=== PATIENT | male | born 1950 | race Caucasian/White ===

== ENCOUNTER 2019-04-05 16:10 | Emergency (ER) | payer MEDICARE ==
--- NOTE | 2019-04-05 16:42 | ED ---
Dizziness HPI - General Chief Complaint: Syncope Stated Complaint: FALL, HEAD INJURY Time Seen by Provider: 04/05/19 16:15 Source: patient, EMS, RN notes reviewed, old records reviewed Mode of arrival: EMS Limitations: no limitations - History of Present Illness Initial Comments: This is a 68-year-old male the ER for evaluation presented for evaluation of multiple falls unsure of surrounding circumstances. Patient's poor strain at his normally event and is brought in by EMS, per bystanders patient was little off and is walking and balancing did fall 3 [facility]. Patient himself denies headache chest pain shortness breath or abdominal pain. Patient does have mild nose laceration. Abrasion to and laceration to right says has well. Patient is out of her any significant events. He has no current headache chest pain shortness breath or abdominal pain. Patient's history is severely lacking and history is obtained from EMS MD Complaint: dizziness, lightheadedness, other (Patient is not a number falls with apparently fell 3 times) -: minutes(s) Timing: sudden onset Description: sense of movement, "room spinning" History of Same: No History of Trauma: Yes (After falling today) Severity: mild Improves With: nothing Worsens With: nothing Associated Symptoms: denies other symptoms - Related Data Home Medications Medication Instructions Recorded Confirmed Aspirin 81 mg PO DAILY 02/28/14 04/05/19 Atorvastatin [Lipitor] 80 mg PO HS 02/28/14 04/05/19 Bisoprolol-Hctz 10-6.25 mg [Ziac 1 tab PO DAILY 02/28/14 04/05/19 10-6.25 MG] Ergocalciferol [Vitamin D2] 50,000 unit PO Q30D 04/05/19 04/05/19 Isosorbide Mononitrate ER [Imdur] 30 mg PO DAILY 04/05/19 04/05/19 Allergies Allergy/AdvReac Type Severity Reaction Status Date / Time No Known Allergies Allergy Verified 04/05/19 16:38 Review of Systems ROS Statement: Those systems with pertinent positive or pertinent negative responses have been documented in the HPI. ROS Other: All systems not noted in ROS Statement are negative. Past Medical History Past Medical History: Hyperlipidemia, Hypertension Additional Past Medical History / Comment(s): FATIGUE, SOB History of Any Multi-Drug Resistant Organisms: None Reported Past Surgical History: No Surgical Hx Reported Past Anesthesia/Blood Transfusion Reactions: No Reported Reaction Past Psychological History: No Psychological Hx Reported Smoking Status: Never smoker Past Alcohol Use History: None Reported Past Drug Use History: None Reported General Exam Limitations: no limitations General appearance: alert, in no apparent distress Head exam: Present: normocephalic, normal inspection. Absent: atraumatic (Nasal bridge laceration likely from glasses, right-sided parietal laceration) Eye exam: Present: normal appearance, PERRL, EOMI. Absent: scleral icterus, conjunctival injection, periorbital swelling ENT exam: Present: normal exam, mucous membranes moist Neck exam: Present: normal inspection. Absent: tenderness, meningismus, lymphadenopathy Respiratory exam: Present: normal lung sounds bilaterally. Absent: respiratory distress, wheezes, rales, rhonchi, stridor Cardiovascular Exam: Present: regular rate, normal rhythm, normal heart sounds. Absent: systolic murmur, diastolic murmur, rubs, gallop, clicks GI/Abdominal exam: Present: soft, normal bowel sounds. Absent: distended, tenderness, guarding, rebound, rigid Extremities exam: Present: normal inspection, full ROM, normal capillary refill. Absent: tenderness, pedal edema, joint swelling, calf tenderness Back exam: Present: normal inspection Neurological exam: Present: alert, oriented X3, CN II-XII intact Psychiatric exam: Present: normal affect, normal mood Skin exam: Present: warm, dry, intact, normal color. Absent: rash Course Vital Signs 04/05/19 04/05/19 16:15 17:11 Temperature 97.6 F Pulse Rate 58 L 57 L Respiratory 16 18 Rate Blood Pressure 148/75 159/85 O2 Sat by Pulse 97 97 Oximetry - Reevaluation(s) Reevaluation #1: 04/05/19 19:20 Medical records reviewed Reevaluation #2: 04/05/19 19:20 refusing computed tomography scan of his chest rel PE even though elevated d-dimer and nonspecific syncopal event. He denies chest pain or shortness of breath. But secondary patient refusing further imaging elevated sign out AGAINST MEDICAL ADVICE as we do not know results of CT EKG Findings - EKG Comments: EKG Findings:: EKG shows sinus bradycardia rate of 55, MS 152, QRS 02, QTc 461 Procedures - Laceration Laceration #1 Consent Obtained: verbal consent Indication: laceration Site: scalp, other (nose) Size (cm): 1 Description: linear Type of Sutures: other (dermabond on nose) Patient Tolerated Procedure: well Laceration #2 Consent Obtained: verbal consent Indication: laceration Site: scalp Size (cm): 6 Description: linear Type of Sutures: other (dhruv on scalp) Patient Tolerated Procedure: well Medical Decision Making - Medical Decision Making 68 male the ER for evaluation sign out AGAINST MEDICAL ADVICE awake able to keep making O medical decisions. CT brain C-spine patient was is negative. Patient can be discharged home - Lab Data Result diagrams: 04/05/19 16:47 04/05/19 16:47 Lab Results 04/05/19 04/05/19 04/05/19 Range/Units 16:47 16:47 16:47 WBC 6.8 (3.8-10.6) k/uL RBC 4.87 (4.30-5.90) m/uL Hgb 15.1 (13.0-17.5) gm/dL Hct 43.9 (39.0-53.0) % MCV 90.1 (80.0-100.0) fL MCH 30.9 (25.0-35.0) pg MCHC 34.3 (31.0-37.0) g/dL RDW 13.0 (11.5-15.5) % Plt Count 273 (150-450) k/uL Neutrophils % 66 % Lymphocytes % 26 % Monocytes % 4 % Eosinophils % 2 % Basophils % 1 % Neutrophils # 4.5 (1.3-7.7) k/uL Lymphocytes # 1.7 (1.0-4.8) k/uL Monocytes # 0.3 (0-1.0) k/uL Eosinophils # 0.2 (0-0.7) k/uL Basophils # 0.1 (0-0.2) k/uL PT 10.5 (9.0-12.0) sec INR 1.0 (<1.2) APTT 21.7 L (22.0-30.0) sec D-Dimer 0.63 H (<0.60) mg/L FEU Sodium 141 (137-145) mmol/L Potassium 4.5 (3.5-5.1) mmol/L Chloride 105 (98-107) mmol/L Carbon Dioxide 26 (22-30) mmol/L Anion Gap 10 mmol/L BUN 16 (9-20) mg/dL Creatinine 1.38 H (0.66-1.25) mg/dL Est GFR (CKD-EPI)AfAm 61 (>60 ml/min/1.73 sqM) Est GFR (CKD-EPI)NonAf 53 (>60 ml/min/1.73 sqM) Glucose 185 H (74-99) mg/dL Calcium 9.4 (8.4-10.2) mg/dL Phosphorus 4.4 (2.5-4.5) mg/dL Magnesium 2.2 (1.6-2.3) mg/dL Total Bilirubin 1.3 (0.2-1.3) mg/dL AST 30 (17-59) U/L ALT 32 (21-72) U/L Alkaline Phosphatase 69 (38-126) U/L Troponin I (0.000-0.034) ng/mL NT-Pro-B Natriuret Pep pg/mL Total Protein 7.7 (6.3-8.2) g/dL Albumin 4.5 (3.5-5.0) g/dL 04/05/19 04/05/19 Range/Units 16:47 16:47 WBC (3.8-10.6) k/uL RBC (4.30-5.90) m/uL Hgb (13.0-17.5) gm/dL Hct (39.0-53.0) % MCV (80.0-100.0) fL MCH (25.0-35.0) pg MCHC (31.0-37.0) g/dL RDW (11.5-15.5) % Plt Count (150-450) k/uL Neutrophils % % Lymphocytes % % Monocytes % % Eosinophils % % Basophils % % Neutrophils # (1.3-7.7) k/uL Lymphocytes # (1.0-4.8) k/uL Monocytes # (0-1.0) k/uL Eosinophils # (0-0.7) k/uL Basophils # (0-0.2) k/uL PT (9.0-12.0) sec INR (<1.2) APTT (22.0-30.0) sec D-Dimer (<0.60) mg/L FEU Sodium (137-145) mmol/L Potassium (3.5-5.1) mmol/L Chloride (98-107) mmol/L Carbon Dioxide (22-30) mmol/L Anion Gap mmol/L BUN (9-20) mg/dL Creatinine (0.66-1.25) mg/dL Est GFR (CKD-EPI)AfAm (>60 ml/min/1.73 sqM) Est GFR (CKD-EPI)NonAf (>60 ml/min/1.73 sqM) Glucose (74-99) mg/dL Calcium (8.4-10.2) mg/dL Phosphorus (2.5-4.5) mg/dL Magnesium (1.6-2.3) mg/dL Total Bilirubin (0.2-1.3) mg/dL AST (17-59) U/L ALT (21-72) U/L Alkaline Phosphatase (38-126) U/L Troponin I <0.012 (0.000-0.034) ng/mL NT-Pro-B Natriuret Pep 504 pg/mL Total Protein (6.3-8.2) g/dL Albumin (3.5-5.0) g/dL - Radiology Data Radiology results: report reviewed (CT brain C-spine patient was negative for acute disease), image reviewed Disposition Clinical Impression: Vasovagal syncope, Nasal laceration, Laceration of head Narrative: RIght Sided Scalp Parietal Laceration 5cm Disposition: HOME SELF-CARE Condition: Good Instructions (If sedation given, give patient instructions): Laceration (ED), Syncope (ED) Is patient prescribed a controlled substance at d/c from ED?: No Referrals: Royal Castro MD [Primary Care Provider] - 1-2 days
[2019-04-05] MEDS ORDERED: SODIUM CHLORIDE 0.9% 500 ML 500 ML IV STA (17:01)
[2019-04-05] MEDS ORDERED: SODIUM CHLORIDE 0.9% 1,000 ML IV STA (17:01)
[2019-04-05 17:30] LABS: Basophils # (A) 0.1 k/uL (0-0.2); Basophils % (A) 1 %; Eosinophils # (A) 0.2 k/uL (0-0.7); Eosinophils % (A) 2 %; HCT 43.9 % (39.0-53.0); HGB 15.1 gm/dL (13.0-17.5); Lymphocytes # (A) 1.7 k/uL (1.0-4.8); Lymphocytes % (A) 26 %; MCH 30.9 pg (25.0-35.0); MCHC 34.3 g/dL (31.0-37.0); MCV 90.1 fL (80.0-100.0); Monocytes # (A) 0.3 k/uL (0-1.0); Monocytes % (A) 4 %; Neutrophils # (A) 4.5 k/uL (1.3-7.7); Neutrophils % (A) 66 %; Platelet Count 273 k/uL (150-450); RBC 4.87 m/uL (4.30-5.90); WBC 6.8 k/uL (3.8-10.6)
[2019-04-05 17:46] LABS: Albumin 4.5 g/dL (3.5-5.0); Calcium 9.4 mg/dL (8.4-10.2); Magnesium 2.2 mg/dL (1.6-2.3); Phosphorus 4.4 mg/dL (2.5-4.5); Potassium 4.5 mmol/L (3.5-5.1); Total Bilirubin 1.3 mg/dL (0.2-1.3); Total Protein 7.7 g/dL (6.3-8.2)
[2019-04-05 17:51] LABS: Prothrombin Time 10.5 sec (9.0-12.0)
[2019-04-05 17:57] LABS: D-Dimer 0.63 mg/L FEU (<0.60)
[2019-04-05 17:58] LABS: Partial Thromboplastin Time 21.7 sec (22.0-30.0)
--- NOTE | 2019-04-05 18:44 | CT ---
EXAMINATION TYPE: CT brain maximo wo con DATE OF EXAM: 04/05/2019 COMPARISON: 05/08/2010 HISTORY: Syncopal episode. Multiple falls with lacerations to right side of head and bridge of nose. CT DLP: 1256.4 (total with facial) mGycm Automated exposure control for dose reduction was used. TECHNIQUE: CT scan of the head and cervical spine are performed without contrast. FINDINGS: There is a 2 cm focal soft tissue tissue swelling high over the right frontal bone. There i s no skull fracture. No intracranial hemorrhage. There is no mass or mass effect, or midline shift. The ventricles and sulci are within normal limits in size. The globes are intact and the visualized sinuses are clear. Cervical spine is visualized in its entirety from C1 through upper thoracic levels and demonstrates s atisfactory alignment without evidence of acute fracture or dislocation. Prevertebral soft tissue ap pears within normal limits. Multilevel mild cervical spondylosis changes noted. The C1-C2 articulati on is unremarkable. IMPRESSION: 1. There is no acute fracture or dislocation evident in the cervical spine. 2. No acute intracranial hemorrhage, mass effect, or midline shift is seen. 3. 2 cm focal soft tissue swelling over the right frontal bone noted.
--- NOTE | 2019-04-05 18:47 | CT ---
EXAMINATION TYPE: CT facial bones wo con DATE OF EXAM: 04/05/2019 COMPARISON: None HISTORY: Syncopal episode. Multiple falls with lacerations to right side of head and bridge of nose. CT DLP: 1256.4 (total with brain) mGycm Automated exposure control for dose reduction was used. TECHNIQUE: CT scan of the sinuses is performed without contrast, axial images are obtained, coronal r eformatted images are also reviewed. FINDINGS: The paranasal sinuses including the frontal, ethmoid, sphenoid, and maxillary sinuses bila terally are well-aerated without abnormal opacification. The ostiomeatal complex is patent bilateral ly on the coronal images. Visualized portion of mastoid air cells show no abnormal opacification. The globes are intact bilate rally. Other: No incidental findings. IMPRESSION: Negative for fracture or malalignment.
[2019-04-05 19:24] VITALS: BP 148/73; PULSE 50; RESP 16
[2019-04-05 20:04] VITALS: TEMP 98.9
== END 2019-04-05 20:02 | disposition home or self-care (01) ==
LOC: EC 16:10
DX: S01.21XA Laceration without foreign body of nose, initial encounter (principal); S01.01XA Laceration without foreign body of scalp, initial encounter; R55 Syncope and collapse; R79.89 Other specified abnormal findings of blood chemistry; R29.6 Repeated falls; E78.5 Hyperlipidemia, unspecified; I10 Essential (primary) hypertension; Z79.82 Long term (current) use of aspirin; Z79.899 Other long term (current) drug therapy; W01.0XXA Fall on same level from slipping, tripping and stumbling without subsequent striking against object, initial encounter; Y93.01 Activity, walking, marching and hiking
CPT/HCPCS: 12002; 12011; 36415; 70450; 70486; 72125; 80053; 83735; 83880; 84100; 84484; 85025; 85379; 85610; 85730; 93005; 96360; 96361; 99285

== ENCOUNTER → 2022-10-28 | Outpatient (CLI) | payer MEDICARE ==
--- NOTE | 2022-10-28 18:19 | US ---
EXAMINATION TYPE: US venous doppler duplex LE LT DATE OF EXAM: 10/28/2022 5:28 PM COMPARISON: NONE CLINICAL INDICATION: Male, 72 years old with history of R22.41 SWELLING OF RIGHT LOWER LIMB; Swelling of left calf x 2 days. Pt states no trauma, but walked 6 miles that day. SIDE PERFORMED: Left TECHNIQUE: The lower extremity deep venous system is examined utilizing real time linear array sonog nikki with graded compression, doppler sonography and color-flow sonography. VESSELS IMAGED: Common Femoral Vein Deep Femoral Vein Greater Saphenous Vein * Femoral Vein Popliteal Vein Small Saphenous Vein * Proximal Calf Veins (* superficial vessels) Left Leg: Negative for DVT IMPRESSION: 1. Left lower extremity ultrasound negative for deep venous thrombosis.
== END | disposition home or self-care (01) ==
LOC: RADUSWWP 17:02
PROVIDERS: ATTEND Family Medicine
DX: R22.41 Localized swelling, mass and lump, right lower limb (principal)

== ENCOUNTER 2023-09-30 16:00 | Observation (INO) | payer MEDICARE ==
[2023-09-30 17:09] LABS: ALT 30 U/L (4-49); AST 32 U/L (17-59); African American GFR (CKD) 75 (>60 ml/min/1.73 sqM); Albumin 4.1 g/dL (3.5-5.0); Alkaline Phosphatase 53 U/L (38-126); Anion Gap 8 mmol/L; Blood Urea Nitrogen 26 mg/dL (9-20); Calcium 9.3 mg/dL (8.4-10.2); Carbon Dioxide 26 mmol/L (22-30); Chloride 104 mmol/L (98-107); Glucose 124 mg/dL (74-99); Non-African American GFR(CKD) 65 (>60 ml/min/1.73 sqM); Potassium 4.3 mmol/L (3.5-5.1); Sodium 138 mmol/L (137-145); Total Bilirubin 1.5 mg/dL (0.2-1.3); Total Protein 6.9 g/dL (6.3-8.2)
[2023-09-30 17:32] LABS: Basophils # (A) 0.1 k/uL (0-0.2); Basophils % (A) 1 %; Eosinophils # (A) 0.2 k/uL (0-0.7); Eosinophils % (A) 2 %; HCT 39.7 % (39.0-53.0); HGB 13.3 gm/dL (13.0-17.5); Lymphocytes # (A) 2.1 k/uL (1.0-4.8); Lymphocytes % (A) 23 %; MCH 30.1 pg (25.0-35.0); MCHC 33.5 g/dL (31.0-37.0); MCV 90.1 fL (80.0-100.0); Mean Platelet Volume 7.8; Monocytes # (A) 0.5 k/uL (0-1.0); Monocytes % (A) 6 %; Neutrophils # (A) 5.9 k/uL (1.3-7.7); Neutrophils % (A) 66 %; Platelet Count 257 k/uL (150-450); RDW 12.9 % (11.5-15.5); WBC 8.9 k/uL (3.8-10.6)
--- NOTE | 2023-09-30 17:40 | CT ---
EXAMINATION TYPE: CT brain wo con DATE OF EXAM: 09/30/2023 COMPARISON: 04/05/2019 HISTORY: dizziness, right eye vision change. Legs give out at random times CT DLP: 1129.[address] of the brain was performed. The ventricles, basal cisterns and sulci overlying the cerebral convexities demonstrate mild enlargem ent. Remote insult posterior right MCA territory. There is no evidence for intracranial hemorrhage or sulcal effacement. There is decreased attenuation about the periventricular white matter and deep white matter of both c erebral hemispheres, compatible with chronic small vessel ischemia. Differential diagnosis does inclu de demyelination. No mass effects are seen.No midline shift. Osseous calvarium is intact. If symptoms persist consider MRI. IMPRESSION: 1. Age related atrophic and chronic small vessel ischemic change without acute intracranial process s een at this time.
[2023-09-30 17:43] LABS: Prothrombin Time 10.9 sec (10.0-12.5)
[2023-09-30 18:00] LABS: Appearance,Urine Clear (Clear); Bilirubin,Urine Negative (Negative); Blood,Urine Negative (Negative); Color,Urine Colorless; Glucose,Urine (UA) Negative (Negative); Ketones,Urine Negative (Negative); Leukocyte Esterase,Urine Negative (Negative); Nitrite,Urine Negative (Negative); PH, Urine 5.5 (5.0-8.0); Protein,Urine Negative (Negative); Urobilinogen,Urine <2.0 mg/dL (<2.0)
[2023-09-30 18:02] LABS: Specific Gravity,Urine 1.046 (1.001-1.035)
--- NOTE | 2023-09-30 18:38 | ED ---
General Adult HPI - General Chief complaint: Dizziness Stated complaint: Loss of balance/disorientated Time Seen by Provider: 09/30/23 17:01 Source: patient Mode of arrival: ambulatory Limitations: no limitations - History of Present Illness Initial comments: Sky is a healthy and active 73yo who presents to the ER today for evaluation of feeling off balance, his legs giving out from under him and vision changes. Patient states he has been in his usual state of health, he was playing pickle ball 5 times a week but developed tennis elbow so he is decreased his activity to 3 days a week. Patient states he woke up this morning walked downstairs and when he was walking outside he noticed that he seemed off balance his legs seem to give out from underneath him causing him to fall. Patient did not hit his head he did not lose consciousness. Patient states he then noted that he seemed to have lost his right sided peripheral vision. He states his vision is not blurry there is no floaters there is no eye pain there is no headache but he feels like he cannot see anything until its right in front of him on the right. Patient does wear corrective lenses and has been wearing them no recent prescription changes. - Related Data Home Medications Medication Instructions Recorded Confirmed Aspirin 81 mg PO DAILY 02/28/14 09/30/23 Atorvastatin [Lipitor] 80 mg PO DAILY 02/28/14 09/30/23 Bisoprolol-Hctz 10-6.25 mg [Ziac 1 tab PO DAILY 02/28/14 09/30/23 10-6.25 MG] Ergocalciferol [Vitamin D2] 1,250 mcg PO DIRECTED 04/05/19 09/30/23 Isosorbide Mononitrate ER [Imdur] 30 mg PO DAILY 04/05/19 09/30/23 Hydrocortisone Acetate [Anucort-Hc] 25 mg RECTAL QID PRN 09/30/23 09/30/23 Hydrocortisone Cream 1 applic TOPICAL QID PRN 09/30/23 09/30/23 [Hydrocortisone 2.5% Cream] Allergies Allergy/AdvReac Type Severity Reaction Status Date / Time No Known Allergies Allergy Verified 09/30/23 19:42 Review of Systems ROS Statement: Those systems with pertinent positive or pertinent negative responses have been documented in the HPI. ROS Other: All systems not noted in ROS Statement are negative. Past Medical History Past Medical History: Hyperlipidemia, Hypertension Additional Past Medical History / Comment(s): FATIGUE, SOB History of Any Multi-Drug Resistant Organisms: None Reported Past Surgical History: No Surgical Hx Reported Past Anesthesia/Blood Transfusion Reactions: No Reported Reaction Past Psychological History: No Psychological Hx Reported Past Alcohol Use History: None Reported Past Drug Use History: None Reported General Exam - General Exam Comments Initial Comments: Physical Exam GENERAL: Patient is well-developed and well-nourished. Patient is nontoxic and well-hydrated and is in no distress. HENT: Normocephalic, Atraumatic. EYES: PERRL, EOMI PULMONARY: Unlabored respirations. CARDIOVASCULAR: RRR Warm and well perfused extremities ABDOMEN: Non-distended SKIN: No rashes or bruising : Deferred NEUROLOGIC: Alert and oriented Normal speech Normal gait but was noted to get weak and require assistance NIH 1 for visual field deficit MUSCULOSKELETAL: Moving all extremities with no apparent injury PSYCHIATRIC: No SI/HI Limitations: no limitations Course Vital Signs 09/30/23 09/30/23 09/30/23 16:06 17:30 19:36 Temperature 97.8 F 97.9 F Pulse Rate 60 68 61 Respiratory 16 18 18 Rate Blood Pressure 193/104 139/83 134/81 O2 Sat by Pulse 99 96 99 Oximetry 09/30/23 22:13 Temperature Pulse Rate 68 Respiratory 20 Rate Blood Pressure 120/84 O2 Sat by Pulse 98 Oximetry EKG Findings - EKG Comments: EKG Findings:: KG interpreted by me, EKG obtained as part of the stroke workup EKG obtained at 1630 rate is 54 rhythm is sinus normal axis, normal intervals, [place] 151 QRS 96 QTc [address] elevations or depressions no evidence of ischemia infarction or arrhythmia Medical Decision Making - Medical Decision Making Was pt. sent in by a medical professional or institution (, PA, SUSTAINABILITY OFFICER, urgent care, hospital, or [facility]...) When possible be specific @ -No Did you speak to anyone other than the patient for history (EMS, parent, family, police, friend...)? What history was obtained from this source @ -No Did you review nursing and triage notes (agree or disagree)? Why? @ -I reviewed and agree with nursing and triage notes Were old charts reviewed (outside hosp., previous admission, EMS record, old EKG, old radiological studies, urgent care reports/EKG's, [facility] records)? Report findings @ -No old charts were reviewed Differential Diagnosis (chest pain, altered mental status, abdominal pain women, abdominal pain men, vaginal bleeding, weakness, fever, dyspnea, syncope, headache, dizziness, GI bleed, back pain, seizure, CVA, palpatations, mental health)? @ -Not applicable EKG interpreted by me (3pts min.). @ -As above X-rays interpreted by me (1pt min.). @ -None done CT interpreted by me (1pt min.). @ -CT brain with no mass no bleed U/S interpreted by me (1pt. min.). @ -None done What testing was considered but not performed or refused? (CT, X-rays, U/S, labs)? Why? @ -None What meds were considered but not given or refused? Why? @ -None Did you discuss the management of the patient with other professionals (professionals i.e. , PA, SUSTAINABILITY OFFICER, lab, RT, psych nurse, healthcare social worker, certified pesticide applicator, teacher, tactical response group officer, social work case manager)? Give summary @ -Discussed with patient's primary care doctor Gloria Was smoking cessation discussed for >3mins.? @ -No Was critical care preformed (if so, how long)? @ -No Were there social determinants of health that impacted care today? How? (Ho melessness, low income, unemployed, alcoholism, drug addiction, transportation, low edu. Level, literacy, decrease access to med. care, long term, rehab)? @ -No Was there de-escalation of care discussed even if they declined (Discuss DNR or withdrawal of care, Hospice)? DNR status @ -No What co-morbidities impacted this encounter? (DM, HTN, Smoking, COPD, CAD, Cancer, CVA, ARF, Chemo, Hep., AIDS, mental health diagnosis, sleep apnea, morbid obesity)? @ -None Was patient admitted / discharged? Hospital course, mention meds given and route, prescriptions, significant lab abnormalities, going to OR and other pertinent info. @ -The patient was seen and evaluated. Patient seems to have some decreased peripheral vision on the right no other focal neurologic deficits, patient woke up with the symptoms this morning was last normal last night, CT and CTA of the brain were performed with no acute findings. Patient was noted to have some generalized weakness with ambulating which is very atypical as the patient is usually quite athletic. Given the patient's feeling of instability and walking, balance issue and vision changes he will be admitted for evaluation by neurology. Undiagnosed new problem with uncertain prognosis? @ -Yes Drug Therapy requiring intensive monitoring for toxicity (Heparin, Nitro, Insulin, Cardizem)? @ -No Were any procedures done? @ -No Diagnosis/symptom? @ -Vision change, difficulty in walking Acute, or Chronic, or Acute on Chronic? @ -Acute Uncomplicated (without systemic symptoms) or Complicated (systemic symptoms)? @ -Default Side effects of treatment? @ -No Exacerbation, Progression, or Severe Exacerbation? @ -No Poses a threat to life or bodily function? How? (Chest pain, USA, AR, pneumonia, PE, COPD, DKA, ARF, appy, cholecystitis, CVA, Diverticulitis, Homicidal, Suicidal, threat to staff... and all critical care pts) @ -Potentially - Lab Data Result diagrams: 09/30/23 16:44 09/30/23 16:44 Lab Results 09/30/23 09/30/23 09/30/23 Range/Units 16:44 16:44 16:44 WBC 8.9 (3.8-10.6) k/uL RBC 4.40 (4.30-5.90) m/uL Hgb 13.3 (13.0-17.5) gm/dL Hct 39.7 (39.0-53.0) % MCV 90.1 (80.0-100.0) fL MCH 30.1 (25.0-35.0) pg MCHC 33.5 (31.0-37.0) g/dL RDW 12.9 (11.5-15.5) % Plt Count 257 (150-450) k/uL MPV 7.8 Neutrophils % 66 % Lymphocytes % 23 % Monocytes % 6 % Eosinophils % 2 % Basophils % 1 % Neutrophils # 5.9 (1.3-7.7) k/uL Lymphocytes # 2.1 (1.0-4.8) k/uL Monocytes # 0.5 (0-1.0) k/uL Eosinophils # 0.2 (0-0.7) k/uL Basophils # 0.1 (0-0.2) k/uL PT 10.9 (10.0-12.5) sec INR 1.0 (<1.2) Sodium 138 (137-145) mmol/L Potassium 4.3 (3.5-5.1) mmol/L Chloride 104 (98-107) mmol/L Carbon Dioxide 26 (22-30) mmol/L Anion Gap 8 mmol/L BUN 26 H (9-20) mg/dL Creatinine 1.14 (0.66-1.25) mg/dL Est GFR (CKD-EPI)AfAm 75 (>60 ml/min/1.73 sqM) Est GFR (CKD-EPI)NonAf 65 (>60 ml/min/1.73 sqM) Glucose 124 H (74-99) mg/dL Calcium 9.3 (8.4-10.2) mg/dL Total Bilirubin 1.5 H (0.2-1.3) mg/dL AST 32 (17-59) U/L ALT 30 (4-49) U/L Alkaline Phosphatase 53 (38-126) U/L Creatine Kinase (55-170) U/L Troponin I (0.000-0.034) ng/mL Total Protein 6.9 (6.3-8.2) g/dL Albumin 4.1 (3.5-5.0) g/dL Urine Color Urine Appearance (Clear) Urine pH (5.0-8.0) Ur Specific [place] (1.001-1.035) Urine Protein (Negative) Urine Glucose (UA) (Negative) Urine Ketones (Negative) Urine Blood (Negative) Urine Nitrite (Negative) Urine Bilirubin (Negative) Urine Urobilinogen (<2.0) mg/dL Ur Leukocyte Esterase (Negative) 09/30/23 09/30/23 09/30/23 Range/Units 16:44 17:38 20:13 WBC (3.8-10.6) k/uL RBC (4.30-5.90) m/uL Hgb (13.0-17.5) gm/dL Hct (39.0-53.0) % MCV (80.0-100.0) fL MCH (25.0-35.0) pg MCHC (31.0-37.0) g/dL RDW (11.5-15.5) % Plt Count (150-450) k/uL MPV Neutrophils % % Lymphocytes % % Monocytes % % Eosinophils % % Basophils % % Neutrophils # (1.3-7.7) k/uL Lymphocytes # (1.0-4.8) k/uL Monocytes # (0-1.0) k/uL Eosinophils # (0-0.7) k/uL Basophils # (0-0.2) k/uL PT (10.0-12.5) sec INR (<1.2) Sodium (137-145) mmol/L Potassium (3.5-5.1) mmol/L Chloride (98-107) mmol/L Carbon Dioxide (22-30) mmol/L Anion Gap mmol/L BUN (9-20) mg/dL Creatinine (0.66-1.25) mg/dL Est GFR (CKD-EPI)AfAm (>60 ml/min/1.73 sqM) Est GFR (CKD-EPI)NonAf (>60 ml/min/1.73 sqM) Glucose (74-99) mg/dL Calcium (8.4-10.2) mg/dL Total Bilirubin (0.2-1.3) mg/dL AST (17-59) U/L ALT (4-49) U/L Alkaline Phosphatase (38-126) U/L Creatine Kinase 195 H (55-170) U/L Troponin I <0.012 (0.000-0.034) ng/mL Total Protein (6.3-8.2) g/dL Albumin (3.5-5.0) g/dL Urine Color Colorless Urine Appearance Clear (Clear) Urine pH 5.5 (5.0-8.0) Ur Specific [place] 1.046 H (1.001-1.035) Urine Protein Negative (Negative) Urine Glucose (UA) Negative (Negative) Urine Ketones Negative (Negative) Urine Blood Negative (Negative) Urine Nitrite Negative (Negative) Urine Bilirubin Negative (Negative) Urine Urobilinogen <2.0 (<2.0) mg/dL Ur Leukocyte Esterase Negative (Negative) Disposition Clinical Impression: Vision changes, Generalized weakness Disposition: ADMITTED IP TO THIS [facility] Condition: Serious Is patient prescribed a controlled substance at d/c from ED?: No
[2023-09-30] MEDS ORDERED: NALOXONE 0.4 MG/ML 1 ML VIAL IV PRN (20:58)
[2023-09-30] MEDS: ATORVASTATIN 80 MG TAB PO STA (21:38)
[2023-09-30] MEDS: ASPIRIN 81 MG PO STA (21:38)
--- NOTE | 2023-10-01 04:54 | CT ---
EXAM: CT Angiography Head With Intravenous Contrast CLINICAL HISTORY: ITS.REASON CT Reason: dizziness, right eye vision change TECHNIQUE: Axial computed tomographic angiography images of the head with intravenous contrast. CTDI is 10.7 mGy and DLP is 511.2 mGy-cm. This CT exam was performed using one or more of the following dose reduction techniques: automated exposure control, adjustment of the mA and/or kV according to patient size, and/or use of iterative reconstruction technique. MIP reconstructed images were created and reviewed. COMPARISON: No relevant prior studies available. FINDINGS: Right internal carotid artery: No significant stenosis. No aneurysm. Right anterior cerebral artery: No significant stenosis. No aneurysm. Right middle cerebral artery: No significant stenosis. No aneurysm. Right posterior cerebral artery: No significant stenosis. No aneurysm. Right vertebral artery: Unremarkable. Left internal carotid artery: No significant stenosis. No aneurysm. Left anterior cerebral artery: No significant stenosis. No aneurysm. Left middle cerebral artery: No significant stenosis. No aneurysm. Left posterior cerebral artery: No significant stenosis. No aneurysm. Left vertebral artery: Unremarkable. Basilar artery: No significant stenosis. No aneurysm. IMPRESSION: No significant stenosis. EXAM: CT Angiography Neck With Intravenous Contrast CLINICAL HISTORY: ITS.REASON CT Reason: dizziness, right eye vision change TECHNIQUE: Axial computed tomographic angiography images of the neck with intravenous contrast. CTDI is 10.7 mGy and DLP is 511.2 mGy-cm. This CT exam was performed using one or more of the following dose reduction techniques: automated exposure control, adjustment of the mA and/or kV according to patient size, and/or use of iterative reconstruction technique. MIP reconstructed images were created and reviewed. COMPARISON: No relevant prior studies available. FINDINGS: Mild bilateral carotid bulb calcifications. VASCULATURE: Right common carotid artery: No significant stenosis. No dissection. Right internal carotid artery: No significant stenosis. No dissection. Right vertebral artery: No significant stenosis. No dissection. Left common carotid artery: No significant stenosis. No dissection. Left internal carotid artery: No significant stenosis. No dissection. Left vertebral artery: No significant stenosis. No dissection. NECK: Lung apices: Unremarkable. CAROTID STENOSIS REFERENCE USING NASCET CRITERIA: % ICA stenosis = (1 - narrowest ICA diameter/diameter of distal cervical ICA) x 100. Mild - <50% stenosis. Moderate - 50-69% stenosis. Severe - 70-94% stenosis. Near occlusion - 95-99% stenosis. Occluded - 100% stenosis. IMPRESSION: No significant stenosis.
[2023-10-01] MEDS ORDERED: HYDROCORTISONE 1% CREAM 30 GM TUBE TOPICAL PRN (10:39)
[2023-10-01] MEDS ORDERED: HYDROCORTISONE SUPPOSITORY 25 MG SUPP RECTAL PRN (10:39)
[2023-10-01] MEDS: ASPIRIN 81 MG PO SCH (11:08)
--- NOTE | 2023-10-01 15:12 | P.CNNES ---
History of Present Illness Consult date: 10/01/23 Requesting physician: Niru Stein Reason for Consult: vision changes, weakness History of Present Illness: this is a 73-year-old gentleman who presented emergency department because of visual disturbance over the right eye and unsteady gait. He stated that yesterday when he was walking his legs gave out at 10:30 AM I felt his vision is blurrier over the right lateral half. He feels whenever he is walking his legs are giving out. He denies any headache, nausea vomiting difficulty getting his words out or swallowing. Denies any history of stroke. Denies any lower back pain bladder or bowel issues. Denies any atrial fibrillation. He does have underlying history of hypertension. He does take aspirin 81 mg daily as well as Lipitor 80 mg daily. Some of the workup during his hospital visit consisted of: CBC with diff is unremarkable. serum glucose is 124 Sodium is 138. Calcium is 9.3. CK level is 195. CT of the head is reported as age-related atrophic and chronic small vessel ischemic change without acute intracranial process seen at this time. I personally reviewed the CT of the head and I agree there is no acute or subacute stroke. It appears patient has encephalomalacia over right parietal region. CTA head and neck is reported as no significant stenosis. Review of Systems The positive and negative as per HPI. Past Medical History Past Medical History: Hyperlipidemia, Hypertension Additional Past Medical History / Comment(s): FATIGUE, SOB History of Any Multi-Drug Resistant Organisms: None Reported Past Surgical History: No Surgical Hx Reported Past Anesthesia/Blood Transfusion Reactions: No Reported Reaction Past Psychological History: No Psychological Hx Reported Smoking Status: Never smoker Past Alcohol Use History: None Reported Past Drug Use History: None Reported Medications and Allergies Home Medications Medication Instructions Recorded Confirmed Type Aspirin 81 mg PO DAILY 02/28/14 09/30/23 History Atorvastatin [Lipitor] 80 mg PO DAILY 02/28/14 09/30/23 History Bisoprolol-Hctz 10-6.25 mg [Ziac 1 tab PO DAILY 02/28/14 09/30/23 History 10-6.25 MG] Ergocalciferol [Vitamin D2] 1,250 mcg PO QMONTHLY 04/05/19 10/01/23 History Isosorbide Mononitrate ER [Imdur] 30 mg PO DAILY 04/05/19 09/30/23 History Hydrocortisone Acetate [Anucort-Hc] 25 mg RECTAL QID PRN 09/30/23 09/30/23 History Hydrocortisone Cream 1 applic TOPICAL QID PRN 09/30/23 09/30/23 History [Hydrocortisone 2.5% Cream] Allergies Allergy/AdvReac Type Severity Reaction Status Date / Time No Known Allergies Allergy Verified 09/30/23 19:42 Physical Examination - Vital Signs Vital Signs: Vital Signs Temp Pulse Resp BP Pulse Ox 10/01/23 12:31 98.7 F 49 L 18 173/92 100 10/01/23 06:17 51 L 18 121/80 99 10/01/23 00:14 51 L 18 105/60 98 09/30/23 22:13 68 20 120/84 98 09/30/23 19:36 61 18 134/81 99 09/30/23 17:30 97.9 F 68 18 139/83 96 09/30/23 16:06 97.8 F 60 16 193/104 99 Intake and Output 09/30/23 10/01/23 10/01/23 22:59 06:59 14:59 Other: Weight 83.915 kg 83.915 kg GENERAL: The patient is lying in bed and is not in acute distress. NEUROLOGICAL: Higher mental function: The patient is awake, alert, oriented to self, place and time. Patient is following commands. No aphasia and no neglect. Cranial nerves: The pupils are round, equal and reactive to light and accommodation. Visual bronson is right homonymous hemianposia to confrontation throughout. Extraocular movement is intact no nystagmus is noted. Facial sensa tion is normal to touch throughout. The facial strength is normal throughout. Hearing is normal bilaterally to hand rub. Tongue is midline and moved [id number] without any difficulty. No dysarthria is noted. Shoulder shrug is normal bilaterally. Motor: Gait is normal. The strength is 5 over 5 throughout. Normal tone and bulk. Cerebellum: Normal finger to nose heel to clemens bilaterally. Sensation: Sensation is normal to touch throughout. Reflexes (right/left): Biceps 1+; triceps1+; brachioradialis 2+; patellar 1+; ankles 1+. Plantars is upgoing at baseline on the left and mute on the right. Results - Laboratory Findings CBC and BMP: 09/30/23 16:44 09/30/23 16:44 Abnormal Lab Findings: Abnormal Labs 09/30/23 09/30/23 09/30/23 16:44 17:38 20:13 BUN 26 H Glucose 124 H Total Bilirubin 1.5 H Creatine Kinase 195 H Ur Specific Elrod 1.046 H Assessment and Plan Assessment: this is a 73-year-old gentleman who presents because of the blurry vision over the right lateral half with unsteady gait and he felt his gait legs gave out whenever he walked. On examination it appears the patient has right monotonous hemianopsia. On CT of the head I felt there is encephalomalacia over the right parietal region. Acute visual disturbance with leg weakness: rule out acute to subacute ischemic stroke I felt patient has Encephalomalacia over the right parietal on CT head underlying history of hypertension Plan: I ordered MRI of the brain, lipid panel, TSH, vitamin B12, folate 2-D echo was ordered and is pending Patient is resumed on his home dose of aspirin 81 mg and Lipitor 80 mg daily. Patient does have any acute or subacute stroke on the MRI then the all start the patient on Plavix 75 mg daily. Continue neuro checks Cardiac monitoring PT OT are consulted We'll defer the rest of the medical management to primary team For DVT prophylaxis I start the patient on subcu heparin 5000 is every 12 hours Thank you for the consultation Time with Patient: Greater than 30
--- NOTE | 2023-10-01 17:49 | CA ---
Transthoracic Echo Report Name: Sky Yen Age: 73 Gender: M : 1950 Exam Date: 10/01/2023 13:53 Exam Location: [facility] Ht (in): 69 Wt (lb): 185 Ordering Physician: Royal Castro MD Attending/Referring Phys: Gloria WHITMAN Research Geneticist Alma Escalona, RD Procedure CPT: Indications: CVA Cardiac Hx: Technical Quality: Good Contrast 1: Agitated Saline Total Dose (mL): 18 Contrast 2: Total Dose (mL): MEASUREMENTS (Male / Female) Normal Values 2D ECHO LV Diastolic Diameter PLAX 5.3 cm 4.2 - 5.9 / 3.9 - 5.3 cm LV Systolic Diameter PLAX 3.4 cm IVS Diastolic Thickness 1.1 cm 0.6 - 1.0 / 0.6 - 0.9 cm LVPW Diastolic Thickness 1.3 cm 0.6 - 1.0 / 0.6 - 0.9 cm LV Relative Wall Thickness 0.4 RV Internal Dim ED PLAX 3.1 cm LA Systolic Diameter LX 4.0 cm 3.0 - 4.0 / 2.7 - 3.8 cm LA Volume 62.8 cm??? 18 - 58 / 22 - 52 cm??? LA Volume Index 30.8 cm???/m??? 16 - 28 cm???/m??? M-MODE Aortic Root Diameter MM 3.5 cm MV E Point Septal Separation 0.9 cm AV Cusp Separation MM 2.2 cm DOPPLER AV Peak Velocity 179.3 cm/s AV Peak Gradient 12.9 mmHg MV Area PHT 4.3 cm??? Mitral E Point Velocity 119.2 cm/s Mitral A Point Velocity 51.8 cm/s Mitral E to A Ratio 2.3 MV Deceleration Time 175.5 ms FINDINGS Left Ventricle Left ventricular ejection fraction is estimated at 60-65 %. Left ventricular cavity size normal. Mildly increased septal wall thickness. Right Ventricle Normal right ventricular size. Unable to estimate the right ventricular systolic pressure. Right Atrium Normal right atrial size. Negative agitated saline bubble study for right to left shunt. Left Atrium Mildly increased left atrial volume. Mitral Valve Mitral valve thickened. Mitral annular calcification. Mild mitral regurgitation. Aortic Valve Trileaflet aortic valve. No aortic valve stenosis or regurgitation. Tricuspid Valve Structurally normal tricuspid valve. No tricuspid regurgitation. Pulmonic Valve Structurally normal pulmonic valve. Trace pulmonic regurgitation. Pericardium No pericardial effusion. Aorta Normal size aortic root and proximal ascending aorta. CONCLUSIONS Preserved systolic function No right to left shunting on bubble study Previewed by: Dr. Getachew Langston MD (Electronically Signed) Final Date: 01 October 2023 17:48
[2023-10-01] MEDS: HEPARIN SODIUM,PORCINE 5,000 UNIT/ML 1 ML VIAL SQ SCH (21:02)
[2023-10-02 03:52] LABS: Chol/HDL Ratio 2.64 Ratio; LDL Cholesterol,Calculated 37.8 mg/dL (0.0-131.0)
[2023-10-02 04:29] VITALS: RESP 16
--- NOTE | 2023-10-02 05:21 | HP ---
HISTORY AND PHYSICAL CHIEF COMPLAINT: Sudden weakness in the left leg. 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 He was going out to play Pickleball when his left leg suddenly went out from under him. Later, the right leg became somewhat weak. He then noticed some visual changes and that he was unable to see to the right of his field of vision. He had no headache, chest pain, palpitations, difficulty with speech, incontinence, etc. REVIEW OF SYSTEMS: Otherwise normal. Past medical history, family history, and personal and social histories reveal that he is not allergic to any medication. He has had some problems with gout in the past and he has a history of hypertension. He has also had coronary artery problem in the past. REVIEW OF SYSTEMS: Otherwise unremarkable as already mentioned. SOCIAL HISTORY: He has never smoked and he does not drink. PHYSICAL EXAMINATION: VITAL SIGNS: Normal. HEENT: Head, ears, eyes, nose, mouth and throat are normal. CHEST: Clear. Carotids are normal and there is no bruit. HEART: He has no cardiac murmur and his chest is clear. ABDOMEN: Soft, nontender. EXTREMITIES: Normal. NEUROLOGICAL: At this time, he seems to be intact, but he still has visual disturbance in the right field of gaze. IMPRESSION: 1. Probable brainstem TIA or stroke. 2. History of hypertension. 3. History of coronary artery disease. PLAN: 1. Bedrest. 2. IV fluids. 3. Frequent monitoring of his neurologic status and vital signs. 4. Echocardiogram. 5. CTA in the emergency room was normal. 6. Neurology consult. MMODL / IJN: [id number] /
[2023-10-02] MEDS: ATORVASTATIN 80 MG TAB PO SCH (08:45)
[2023-10-02] MEDS: ISOSORBIDE MONONITRATE ER 30 MG TAB.ER.24H PO SCH (08:45)
[2023-10-02] MEDS: BISOPROLOL-HCTZ 10-6.25 MG 1 EACH TAB PO SCH (08:45)
[2023-10-02 10:26] VITALS: BP 131/78; PULSE 50; TEMP 97.9
--- NOTE | 2023-10-02 14:21 | MR ---
EXAMINATION TYPE: MR brain wo/w con DATE OF EXAM: 10/02/2023 1:38 PM COMPARISON: NONE HISTORY: Vision changes, unsteady gait, evaluate for stroke. CONTRAST: Patient received 8 mL intravenous Gadavist gadolinium contrast. Multiplanar and multispin-echo imaging of the brain was performed . Pre and post contrast enhanced i mages are obtained. The ventricles, basal cisterns and sulci overlying the cerebral convexities are mildly enlarged. Rem ote insult posterior right MCA territory. There is evidence of mild periventricular white matter ischemic demyelination. Remote deep white matter insults are also noted. Diffusion weighted data set demonstrates increased signal in the region of the left occipital lobe me asuring approximately 3.8 cm AP dimension by 1.1 cm transverse dimension. There are 2 additional tiny foci of increased signal noted within the high right frontal lobe parasagittal region. There is no evidence for midline shift or mass effect. Acute intracranial hemorrhage or extra-axial collection is not evident. No enhancing lesions are seen. The paranasal sinuses and mastoid air cells are well-aerated. IMPRESSION: 1. Areas of acute ischemia involving the left occipital lobe and right high frontal parasagittal cristhian on. 2. No evidence for intracranial hemorrhage. 3. Remote insult posterior right MCA territory.
[2023-10-02] MEDS ORDERED: CLOPIDOGREL 75 MG TAB PO SCH (15:15)
--- NOTE | 2023-10-02 15:56 | P.PN ---
Subjective Progress Note Date: 10/02/23 I am following-up with patient and states is about the same. Denies of any new neurological issues. Objective - Vital Signs Vital signs: Vital Signs Temp 97.9 F 10/02/23 08:00 Pulse 50 L 10/02/23 08:00 Resp 16 10/02/23 08:00 BP 131/78 10/02/23 08:00 Pulse Ox 97 10/02/23 08:00 FiO2 Intake & Output 10/01/23 10/02/23 10/02/23 18:59 06:59 18:59 Intake Total 240 Balance 240 Intake: Oral 240 Other: Voiding Method Toilet Toilet # Voids 2 - Exam GENERAL: The patient is sitting in a recliner chair and is not in acute distress. NEUROLOGICAL: Higher mental function: The patient is awake, alert, oriented to self, place and time. Patient is following commands. No aphasia and no neglect. Cranial nerves: The pupils are round, equal and reactive to light and accommodation. Visual bronson is right lower quandrant field defect bilaterally. Extraocular movement is intact no nystagmus is noted. Facial sensation is normal to touch throughout. The facial strength is normal throughout. Hearing is normal bilaterally to hand rub. Tongue is midline and moved [id number] without any difficulty. No dysarthria is noted. Shoulder shrug is normal bilaterally. Motor: Gait is normal. The strength is 5 over 5 throughout. Normal tone and bulk. Cerebellum: Normal finger to nose heel to clemens bilaterally. Sensation: Sensation is normal to touch throughout. Reflexes (right/left): Biceps 1+; triceps1+; brachioradialis 2+; patellar 1+; ankles 1+. Plantars is upgoing at baseline on the left and mute on the right. Some of the workup during his hospital visit consisted of: CBC with diff is unremarkable. serum glucose is 124 Sodium is 138. Calcium is 9.3. CK level is 195. Lipid panel: TG 109, cholestrol 96, LDL 37 and HDL 36 Vitamin B12: 350 Folate: 12.6 TSH: 1.33 CT of the head is reported as age-related atrophic and chronic small vessel ischemic change without acute intracranial process seen at this time. I personally reviewed the CT of the head and I agree there is no acute or subacute stroke. It appears patient has encephalomalacia over right parietal region. CTA head and neck is reported as no significant stenosis. 2D ech: Reported as preserved systolic function. No right to left shunting on bubble study. - Labs CBC & Chem 7: 09/30/23 16:44 09/30/23 16:44 Labs: Abnormal Lab Results - Last 24 Hours (Table) 10/01/23 Range/Units 15:59 HDL Cholesterol 36.40 L (40.00-60.00) mg/dL Assessment and Plan Assessment: this is a 73-year-old gentleman who presents because of the blurry vision over the right lateral half with unsteady gait and he felt his gait legs gave out whenever he walked. On examination it appears the patient has right low field cut bilaterally. On CT of the head I felt there is encephalomalacia over the right parietal region. Acute visual disturbance with leg weakness: rule out acute to subacute ischemic stroke I felt patient has Encephalomalacia over the right parietal on CT head underlying history of hypertension Plan: Pending MRI of the brain Patient is resumed on his home dose of aspirin 81 mg and Lipitor 80 mg daily. If, patient does have any acute or subacute stroke on the MRI then the all start the patient on Plavix 75 mg daily. Continue neuro checks Cardiac monitoring PT OT are consulted We'll defer the rest of the medical management to primary team For DVT prophylaxis I start the patient on subcu heparin 5000 is every 12 hours Will continue to follow. Time with Patient: Less than 30
--- NOTE | 2023-10-03 03:25 | DS ---
DISCHARGE SUMMARY CHIEF COMPLAINT: Weakness in the left leg and visual changes. HISTORY OF PRESENT ILLNESS AND PHYSICAL EXAM: Details of this man's history and physical can be found in the initial workup. LABORATORY STUDIES: While he was in the hospital, he had laboratory studies, details of which can be found in the laboratory section of his chart. COURSE IN THE HOSPITAL: After admission, he was placed on bedrest and started on a neurologic workup. CT suggested a small posterior infarct. There is no hematoma. While in the hospital, his symptoms essentially cleared. He thought he still had a little bit of difficulty with history of right homonymous hemianopia, but he thought it was going away. He was able to walk and his leg strength returned. It was felt that he could go home on the and he will go home on his usual activity, regular diet, and regular medications along with Plavix 75 mg once a day for 21 days. He will be seen in the office in several days. FINAL DIAGNOSES: 1. Posterior occipital cerebrovascular accident. 2. History of hypertension. OPERATIONS: None. CONSULTATIONS: Neurology. He is improved. MMODL / IJN: [id number] /
== END 2023-10-02 17:29 | disposition home or self-care (01) ==
LOC: EC 16:00 → 3SCARD 20:50
PROVIDERS: ADMIT Family Medicine; ATTEND Family Medicine
DX: I67.82 Cerebral ischemia (principal); R53.1 Weakness; H53.8 Other visual disturbances; R26.81 Unsteadiness on feet; E78.5 Hyperlipidemia, unspecified; I10 Essential (primary) hypertension; I25.10 Atherosclerotic heart disease of native coronary artery without angina pectoris; Z79.82 Long term (current) use of aspirin; Z79.899 Other long term (current) drug therapy
CPT/HCPCS: 96372 ×2; 99285; 36415; 93005; 93306; 97161; 97165; 80061; 80053; 84443; 82607; 82550; 82746; 84484; 85025; 85610; 81003; 70496; 70450; 70498; 70553; G0378 ×3; J1644 ×2; Q9967; A9585

== ENCOUNTER 2023-10-18 11:01 | Observation (INO) | payer MEDICARE ==
--- NOTE | 2023-10-18 11:08 | ED ---
General Adult HPI - General Stated complaint: TIA Time Seen by Provider: 10/18/23 11:01 Source: patient, RN notes reviewed, old records reviewed - History of Present Illness Initial comments: This is a 73-year-old male who presents to the emergency department stating that he had a stroke a few weeks ago and was given tPA. Patient comes in today stating that he woke up this morning was feeling fine and about 930 he had complete left-sided paralysis. Patient said he was unable to get out of bed and he immediately called EMS. Patient was recently taken off his Plavix by his primary medical care doctor. By the time EMS arrived to the house the patient's symptoms had almost completely resolved and now they have completely resolved. Patient denies any chest pain difficulty breathing or shortness of breath. Patient has any headache patient denies any numbness weakness currently. Patient has any visual disturbance or speech disturbance. - Related Data Home Medications Medication Instructions Recorded Confirmed Aspirin 81 mg PO DAILY 02/28/14 10/18/23 Atorvastatin [Lipitor] 80 mg PO DAILY 02/28/14 10/18/23 Bisoprolol-Hctz 10-6.25 mg [Ziac 1 tab PO DAILY 02/28/14 10/18/23 10-6.25 MG] Ergocalciferol [Vitamin D2 1,250 mcg PO QMONTHLY 04/05/19 10/18/23 (DRISDOL)] Isosorbide Mononitrate ER [Imdur] 30 mg PO DAILY 04/05/19 10/18/23 Hydrocortisone Acetate [Anucort-Hc] 25 mg RECTAL QID PRN 09/30/23 10/18/23 Hydrocortisone Cream 1 applic TOPICAL QID PRN 09/30/23 10/18/23 [Hydrocortisone 2.5% Cream] Previous Rx's Medication Instructions Recorded Clopidogrel [Plavix] 75 mg PO DAILY #30 tab 10/02/23 Allergies Allergy/AdvReac Type Severity Reaction Status Date / Time No Known Allergies Allergy Verified 10/18/23 11:43 Review of Systems ROS Statement: Those systems with pertinent positive or pertinent negative responses have been documented in the HPI. ROS Other: All systems not noted in ROS Statement are negative. Past Medical History Past Medical History: Hyperlipidemia, Hypertension Additional Past Medical History / Comment(s): FATIGUE, SOB History of Any Multi-Drug Resistant Organisms: None Reported Past Surgical History: No Surgical Hx Reported Past Anesthesia/Blood Transfusion Reactions: No Reported Reaction Past Psychological History: No Psychological Hx Reported Smoking Status: Never smoker Past Alcohol Use History: None Reported Past Drug Use History: None Reported General Exam - General Exam Comments Initial Comments: GENERAL: Patient is well-developed and well-nourished. Patient is nontoxic and well- hydrated and is in mild distress. ENT: Neck is soft and supple. No significant lymphadenopathy is noted. Oropharynx is clear. Moist mucous membranes. Neck has full range of motion without eliciting any pain. EYES: The sclera were anicteric and conjunctiva were pink and moist. Extraocular movements were intact and pupils were equal round and reactive to light. Eyelids were unremarkable. PULMONARY: Unlabored respirations. Good breath sounds bilaterally. No audible rales rhonchi or wheezing was noted. CARDIOVASCULAR: There is a regular rate and rhythm without any murmurs gallops or rubs. ABDOMEN: Soft and nontender with normal bowel sounds. No palpable organomegaly was noted. There is no palpable pulsatile mass. SKIN: Skin is clear with no lesions or rashes and otherwise unremarkable. NEUROLOGIC: Patient is alert and oriented x3. Cranial nerves II through XII are grossly intact. Motor and sensory are also intact. Normal speech, volume and content. Symmetrical smile. Patient has an NIH of 0 MUSCULOSKELETAL: Normal extremities with adequate strength and full range of motion. LYMPHATICS: No significant lymphadenopathy is noted PSYCHIATRIC: Normal psychiatric evaluation. Course Vital Signs 10/18/23 10/18/23 11:06 11:52 Temperature 97.9 F Pulse Rate 58 L 55 L Respiratory 18 16 Rate Blood Pressure 164/82 150/79 O2 Sat by Pulse 98 98 Oximetry Medical Decision Making - Medical Decision Making EKG is interpreted by myself. EKG shows sinus bradycardia 59 bpm [place] 159 QRS is 99 QT interval is 451 QTc is 450. Patient's EKG shows no ST segment elevation or depression Was pt. sent in by a medical professional or institution (, PA, RELIEF MATE, urgent care, hospital, or halfway...) When possible be specific @ -No Did you speak to anyone other than the patient for history (EMS, parent, family, police, friend...)? What history was obtained from this source @ -No Did you review nursing and triage notes (agree or disagree)? Why? @ -I reviewed and agree with nursing and triage notes Were old charts reviewed (outside hosp., previous admission, EMS record, old EKG, old radiological studies, urgent care reports/EKG's, halfway records)? Report findings @ -I reviewed prior CT of the brain it showed an infarct in the front temporal region on the right Differential Diagnosis (chest pain, altered mental status, abdominal pain women, abdominal pain men, vaginal bleeding, weakness, fever, dyspnea, syncope, h eadache, dizziness, GI bleed, back pain, seizure, CVA, palpatations, mental health, musculoskeletal)? @ -Differential CVA Ischemic stroke, hemorrhagic stroke, brain tumor, atypical migraine, Wernicke's encephalopathy, seizure, multiple sclerosis, meningitis, encephalitis, hypoglycemia, Guillain-Carver, electrolytes disturbance, myasthenia gravis.... This is not meant to be an all-inclusive list EKG interpreted by me (3pts min.). @ -As above X-rays interpreted by me (1pt min.). @ -Chest x-ray shows no acute normality. CT interpreted by me (1pt min.). @ -CT of the brain shows no new acute abnormality there is a infarct in the right frontal temporal region. CT angio of the head and neck showed no acute abnormality U/S interpreted by me (1pt. min.). @ -None done What testing was considered but not performed or refused? (CT, X-rays, U/S, labs)? Why? @ -None What meds were considered but not given or refused? Why? @ -None Did you discuss the management of the patient with other professionals (professionals i.e. , PA, RELIEF MATE, lab, RT, psych nurse, director of social services, water taxi captain, teacher, armored vehicle officer, embedded case manager)? Give summary @ -I spoke with [facility] and they agreed to admit the patient Was smoking cessation discussed for >3mins.? @ -No Was critical care preformed (if so, how long)? @ -No Were there social determinants of health that impacted care today? How? (Homelessness, low income, unemployed, alcoholism, drug addiction, transportation, low edu. Level, literacy, decrease access to med. care, correction, rehab)? @ -No Was there de-escalation of care discussed even if they declined (Discuss DNR or withdrawal of care, Hospice)? DNR status @ -No What co-morbidities impacted this encounter? (DM, HTN, Smoking, COPD, CAD, Cancer, CVA, ARF, Chemo, Hep., AIDS, mental health diagnosis, sleep apnea, morbid obesity)? @ -None Was patient admitted / discharged? Hospital course, mention meds given and route, prescriptions, significant lab abnormalities, going to OR and other pertinent info. @ -Patient's symptoms had completely resolved prior to the patient coming to the hospital. Patient has TIA. Patient will be started back on Plavix. Patient will be admitted to Dr. Velazco and neurology be consulted Undiagnosed new problem with uncertain prognosis? @ -No Drug Therapy requiring intensive monitoring for toxicity (Heparin, Nitro, Insulin, Cardizem)? @ -No Were any procedures done? @ -No Diagnosis/symptom? @ -TIA Acute, or Chronic, or Acute on Chronic? @ -Acute Uncomplicated (without systemic symptoms) or Complicated (systemic symptoms)? @ -Complicated Side effects of treatment? @ -No Exacerbation, Progression, or Severe Exacerbation? @ -No Poses a threat to life or bodily function? How? (Chest pain, [place], [place], pneumonia, PE, COPD, DKA, ARF, appy, cholecystitis, CVA, Diverticulitis, Homicidal, Suicidal, threat to staff... and all critical care pts) @ -Yes this can lead to a stroke and morbidity and mortality. - Lab Data Result diagrams: 10/18/23 11:21 10/18/23 11:21 Lab Results 10/18/23 10/18/23 10/18/23 Range/Units 11:21 11:21 11:21 WBC 5.8 (3.8-10.6) k/uL RBC 4.51 (4.30-5.90) m/uL Hgb 13.6 (13.0-17.5) gm/dL Hct 40.4 (39.0-53.0) % MCV 89.6 (80.0-100.0) fL MCH 30.2 (25.0-35.0) pg MCHC 33.7 (31.0-37.0) g/dL RDW 13.3 (11.5-15.5) % Plt Count 254 (150-450) k/uL MPV 7.6 Neutrophils % 64 % Lymphocytes % 24 % Monocytes % 7 % Eosinophils % 2 % Basophils % 1 % Neutrophils # 3.7 (1.3-7.7) k/uL Lymphocytes # 1.4 (1.0-4.8) k/uL Monocytes # 0.4 (0-1.0) k/uL Eosinophils # 0.1 (0-0.7) k/uL Basophils # 0.1 (0-0.2) k/uL PT 11.0 (10.0-12.5) sec INR 1.0 (<1.2) APTT 21.4 L (22.0-30.0) sec Sodium 137 (137-145) mmol/L Potassium 4.1 (3.5-5.1) mmol/L Chloride 108 H (98-107) mmol/L Carbon Dioxide 20 L (22-30) mmol/L Anion Gap 9 mmol/L BUN 21 H (9-20) mg/dL Creatinine 0.92 (0.66-1.25) mg/dL Est GFR (CKD-EPI)AfAm >90 (>60 ml/min/1.73 sqM) Est GFR (CKD-EPI)NonAf 84 (>60 ml/min/1.73 sqM) Glucose 115 H (74-99) mg/dL Calcium 8.8 (8.4-10.2) mg/dL Total Bilirubin 1.3 (0.2-1.3) mg/dL AST 25 (17-59) U/L ALT 24 (4-49) U/L Alkaline Phosphatase 58 (38-126) U/L Creatine Kinase 119 (55-170) U/L Troponin I (0.000-0.034) ng/mL Total Protein 6.5 (6.3-8.2) g/dL Albumin 3.6 (3.5-5.0) g/dL 10/18/23 Range/Units 11:21 WBC (3.8-10.6) k/uL RBC (4.30-5.90) m/uL Hgb (13.0-17.5) gm/dL Hct (39.0-53.0) % MCV (80.0-100.0) fL MCH (25.0-35.0) pg MCHC (31.0-37.0) g/dL RDW (11.5-15.5) % Plt Count (150-450) k/uL MPV Neutrophils % % Lymphocytes % % Monocytes % % Eosinophils % % Basophils % % Neutrophils # (1.3-7.7) k/uL Lymphocytes # (1.0-4.8) k/uL Monocytes # (0-1.0) k/uL Eosinophils # (0-0.7) k/uL Basophils # (0-0.2) k/uL PT (10.0-12.5) sec INR (<1.2) APTT (22.0-30.0) sec Sodium (137-145) mmol/L Potassium (3.5-5.1) mmol/L Chloride (98-107) mmol/L Carbon Dioxide (22-30) mmol/L Anion Gap mmol/L BUN (9-20) mg/dL Creatinine (0.66-1.25) mg/dL Est GFR (CKD-EPI)AfAm (>60 ml/min/1.73 sqM) Est GFR (CKD-EPI)NonAf (>60 ml/min/1.73 sqM) Glucose (74-99) mg/dL Calcium (8.4-10.2) mg/dL Total Bilirubin (0.2-1.3) mg/dL AST (17-59) U/L ALT (4-49) U/L Alkaline Phosphatase (38-126) U/L Creatine Kinase (55-170) U/L Troponin I <0.012 (0.000-0.034) ng/mL Total Protein (6.3-8.2) g/dL Albumin (3.5-5.0) g/dL Disposition Clinical Impression: Transient cerebral ischemia Disposition: ADMITTED IP TO THIS HOSP Referrals: Royal Castro MD [Primary Care Provider] - 1-2 days Time of Disposition: 13:15
[2023-10-18 11:39] LABS: Basophils # (A) 0.1 k/uL (0-0.2); Basophils % (A) 1 %; Eosinophils # (A) 0.1 k/uL (0-0.7); Eosinophils % (A) 2 %; HCT 40.4 % (39.0-53.0); HGB 13.6 gm/dL (13.0-17.5); Lymphocytes # (A) 1.4 k/uL (1.0-4.8); Lymphocytes % (A) 24 %; MCH 30.2 pg (25.0-35.0); MCHC 33.7 g/dL (31.0-37.0); MCV 89.6 fL (80.0-100.0); Mean Platelet Volume 7.6; Monocytes # (A) 0.4 k/uL (0-1.0); Monocytes % (A) 7 %; Neutrophils # (A) 3.7 k/uL (1.3-7.7); Neutrophils % (A) 64 %; Platelet Count 254 k/uL (150-450); RBC 4.51 m/uL (4.30-5.90); RDW 13.3 % (11.5-15.5); WBC 5.8 k/uL (3.8-10.6)
[2023-10-18 11:40] LABS: ALT 24 U/L (4-49); AST 25 U/L (17-59); African American GFR (CKD) >90 (>60 ml/min/1.73 sqM); Albumin 3.6 g/dL (3.5-5.0); Alkaline Phosphatase 58 U/L (38-126); Anion Gap 9 mmol/L; Blood Urea Nitrogen 21 mg/dL (9-20); Calcium 8.8 mg/dL (8.4-10.2); Carbon Dioxide 20 mmol/L (22-30); Chloride 108 mmol/L (98-107); Creatine Kinase 119 U/L (55-170); Glucose 115 mg/dL (74-99); Non-African American GFR(CKD) 84 (>60 ml/min/1.73 sqM); Potassium 4.1 mmol/L (3.5-5.1); Sodium 137 mmol/L (137-145); Total Bilirubin 1.3 mg/dL (0.2-1.3); Total Protein 6.5 g/dL (6.3-8.2)
--- NOTE | 2023-10-18 11:43 | XR ---
EXAMINATION TYPE: XR chest 2V DATE OF EXAM: 10/18/2023 COMPARISON: None HISTORY: 73-year-old male confusion, altered mental status TECHNIQUE: AP and lateral views FINDINGS: The cardiomediastinal silhouette, aorta, and pulmonary vasculature are within normal limits. Lungs an d pleural spaces are clear. IMPRESSION: No acute cardiopulmonary process.
[2023-10-18] MEDS: SODIUM CHLORIDE 0.9% 500 ML 500 ML IV STA (11:50)
[2023-10-18 12:18] LABS: Partial Thromboplastin Time 21.4 sec (22.0-30.0)
--- NOTE | 2023-10-18 12:27 | CT ---
EXAMINATION TYPE: CT brain wo con DATE OF EXAM: 10/18/2023 COMPARISON: 09/30/2023 HISTORY: 73-year-old male with neurologic deficit, acute, stroke suspected, TIA TECHNIQUE: Examination was done in axial plane without intravenous contrast. Coronal and sagittal r econstructions performed. CT DLP: 1047.6 mGycm Automated exposure control for dose reduction was used. FINDINGS: There is no evidence of acute intracranial hemorrhage, acute ischemic changes, mass, mass-effect, or extra-axial fluid collection. There is no effacement of cerebral sulci or basal subarachnoid cister ns. There is no hydrocephalus. There is no midline shift. Wallace-white matter distinction is preserv ed. Redemonstrated is encephalomalacia posterior right frontotemporal junction. Mild bifrontal cerebral a trophy. Partially empty sella again noted. Layering fluid right maxillary sinus. [id number]-yr-[id number] mucosal thickening right ethmoid air cells. Ma stoid air cells well pneumatized. Orbits and globes are intact. IMPRESSION: 1. Redemonstrated old infarct posterior right frontotemporal junction. 2. No acute intracranial abnormality seen. 3. Correlate for acute right maxillary sinusitis.
--- NOTE | 2023-10-18 12:33 | CT ---
EXAMINATION TYPE: CT angio head neck DATE OF EXAM: 10/18/2023 COMPARISON: 09/30/2023 HISTORY: 73-year-old male neurologic deficit, acute, stroke suspected, TIA TECHNIQUE: Contiguous axial scanning of the head and neck performed with IV Contrast, patient injecte d with 65 ml mL of Isovue 370. Coronal and sagittal reconstructions performed. 3-D reconstructions ge nerated on a dedicated independent workstation. CT DLP: 550.9 mGycm Automated exposure control for dose reduction was used. FINDINGS: NECK: Conventional arch vessel branching anatomy. Mild atherosclerotic arch calcifications. Codominant vertebral arteries patent throughout the course. Bilateral common carotid arteries are patent. There is mild atherosclerotic calcification of the bilateral carotid bulbs with mild, less than 25% n arrowing bilateral carotid bulbs. Remainder of the ICAs are patent. NASCET criteria is visualized. Moderate bilateral palatine tonsillar hypertrophy. HEAD: The bilateral vertebral and basilar artery as well as the remainder of the posterior circulation is p atent. Mild atherosclerotic calcifications throughout the carotid siphons. This contributes to mild to moder ate narrowing supraclinoid left ICA, thin cut axial images 338 and 339. Hypoplastic A1 segment left anterior cerebral artery. Remainder of the anterior circulation appears patent. No aneurysmal change is seen. IMPRESSION: NECK: 1. MILD, LESS THAN 25% PROXIMAL ICA STENOSIS ON EITHER SIDE. 2. NO HEMODYNAMICALLY SIGNIFICANT STENOSIS OF THE CAROTID OR VERTEBRAL ARTERIES OF THE NECK. HEAD: 3. Some atherosclerotic calcifications contributing to a mild to moderate narrowing of the supraclino id left ICA. 4. No large vessel intracranial arterial occlusion, significant stenosis, or aneurysmal change is see n.
[2023-10-18] MEDS ORDERED: HYDROCORTISONE SUPPOSITORY 25 MG SUPP RECTAL PRN (13:18)
[2023-10-18] MEDS ORDERED: HYDROCORTISONE 1% CREAM 30 GM TUBE TOPICAL PRN (13:49)
[2023-10-18] MEDS: ERGOCALCIFEROL 1,250 MCG (50,000 IU) CAPSULE PO SCH (14:36)
[2023-10-18] MEDS: HEPARIN SODIUM,PORCINE 5,000 UNIT/ML 1 ML VIAL SQ SCH (14:41)
[2023-10-18 16:20] LABS: Amphetamine Screen,Urine Not Detected (NotDetected); Barbiturate Screen,Urine Not Detected (NotDetected); Benzodiazepines Screen,Urine Not Detected (NotDetected); Cocaine Screen,Urine Not Detected (NotDetected); Methadone Screen, Urine Not Detected (NotDetected); Opiate Screen,Urine Not Detected (NotDetected); Oxycodone Screen, Urine Not Detected (NotDetected); Phencyclidine Screen,Urine Not Detected (NotDetected); Tricyclic Antidepressant,Urine Not Detected (NotDetected); Urn Cannabinoid Scrn Not Detected (NotDetected)
[2023-10-18 16:25] LABS: Appearance,Urine Clear (Clear); Bilirubin,Urine Negative (Negative); Blood,Urine Negative (Negative); Color,Urine Colorless; Glucose,Urine (UA) Negative (Negative); Ketones,Urine Negative (Negative); Leukocyte Esterase,Urine Negative (Negative); Nitrite,Urine Negative (Negative); Protein,Urine Negative (Negative); Urobilinogen,Urine <2.0 mg/dL (<2.0)
[2023-10-18 16:33] LABS: Specific Gravity,Urine 1.049 (1.001-1.035)
--- NOTE | 2023-10-18 21:29 | HP ---
HISTORY AND PHYSICAL I am covering for Dr. Castro. CHIEF COMPLAINT: Weakness of the left side. HISTORY OF PRESENT ILLNESS: This is a 73-year-old gentleman, who was admitted with weakness of the left leg and visual changes few weeks ago and was noted to have posterior occipital CVA, had an MRI during that time. MRA showed area of acute ischemia involving the left occipital lobe and the right high frontal parasagittal area region. Remote insult of the right MCA territory was also noted. Currently, the patient has weakness of the left side, which improved significantly after coming to the hospital, and the patient had CT angiography, which showed less than 25% proximal ICA stenosis. No large vessel occlusions were noted. The patient admitted for further evaluation and treatment. There is no history of fever, rigors, chills at this time. PAST MEDICAL HISTORY: History of recent stroke as mentioned early, hyperlipidemia, hypertension, fatigue, shortness of breath. HOME MEDICATIONS: Imdur. Rest of medication doses are reviewed. ALLERGIES: None. FAMILY HISTORY: No history of heart disease or stroke. SOCIAL HISTORY: No history of smoking or alcohol. REVIEW OF SYSTEMS: A 14-point review of systems is negative except as mentioned earlier. PHYSICAL EXAMINATION: VITAL SIGNS: Pulse is 55, blood pressure 150/74, respirations 16. HEENT: Conjunctivae normal. NECK: No jugular venous distention. RESPIRATIONS: Diminished at the bases. No rhonchi, no crackles. ABDOMEN: Soft and nontender. LEGS: No edema, no cyanosis. NERVOUS SYSTEM: Minimal weakness on the left side. No incoordination. The gait not tested. SKIN: No rash. JOINTS: No active deforming arthropathy. LABORATORY DATA: Noted. Glucose 150. Otherwise, the CT scan of the brain showed old infarct in the posterior right fronto temporal junction. Chest x-ray was unremarkable. A 2D echo done during the previous admission showed no [id number]-[id number] shunting on bubble study. ASSESSMENT: 1. Weakness of the left side with recurrent weakness, recurrent stroke. 2. History of recent multifocal stroke involving the left occipital lobe and right high fronto parietal area. 3. Remote history of right MCA territory on the previous MRI scan. 4. Hypertension. 5. Hyperlipidemia. 6. History of fatigue and shortness of breath. RECOMMENDATIONS AND DISCUSSION: This 73-year-old gentleman presented with multiple complex medical issues. We will monitor the patient closely. I would recommend antiplatelet agent, neurology consultation, neuro checks. The patient could possibly have TIA, but however, other possibilities also need to be ruled out because of the recurrent nature and as well as the multifocal area noted in the previous MRI. A repeat MRI may be in order, but however, I will leave the decision to neurologist and continue monitoring. The prognosis guarded because of multiple complex medical issues. Further recommendations to follow. See orders for details. I would also repeat lipid levels and other basic labs also. MMODL / IJN: [id number] /
[2023-10-19] MEDS: BENZOCAINE SPRAY 1 CAN TOPICAL ONE (08:29)
[2023-10-19] MEDS: MIDAZOLAM 2 MG/2 ML VIAL IVP ONE (08:33)
[2023-10-19] MEDS: SODIUM CHLORIDE 0.9% 500 ML 500 ML IV ONE (08:33)
[2023-10-19] MEDS: fentaNYL (PF) 50 MCG/ML 2 ML AMP IVP ONE (08:34)
--- NOTE | 2023-10-19 09:30 | ECHOT ---
TRANSESOPHAGEAL ECHOCARDIOGRAM INDICATION: TIA. PROCEDURE NOTE: After obtaining informed consent, transesophageal echocardiogram was performed in left lateral position using an Omniplane probe. Local and IV sedation were obtained using 2 mg of Versed and 25 mcg of fentanyl. The patient tolerated the procedure well without any obvious immediate complications. FINDINGS: 1. There is no intracardiac thrombus within the left atrial appendage, left atrium, right atrium, right ventricle, or left ventricle. 2. Left ventricle has normal size and systolic function. 3. Interatrial septum, there is no evidence of [id number] shunt by color-flow Doppler or [id number]-ru-qazt shunt by agitated saline contrast study. 4. Left atrium appears enlarged. 5. Right atrium and right ventricle seen within normal limits. 6. Left ventricle has normal size and systolic function. 7. Mitral valve is anatomically normal. There is mild central mitral regurgitation noted. 8. Aortic valve is a 3-leaflet valve. There is no evidence of aortic stenosis or regurgitation. 9. Aortic root measures within normal limits. There is mild tricuspid regurgitation noted. CONCLUSIONS: 1. No intracardiac thrombus. 2. No evidence of shunting across the interatrial septum. 3. Normal LV function. FOLLOWUP PLANS: I am going to see the patient back in my office and I will perform an event monitor and if necessary a loop recorder. Please arrange follow up with me in a week's time. MMODL / IJN: [id number] /
[2023-10-19] MEDS: fentaNYL (PF) 50 MCG/ML 2 ML AMP ONE (09:47)
[2023-10-19] MEDS: ISOSORBIDE MONONITRATE ER 30 MG TAB.ER.24H PO SCH (10:07)
[2023-10-19] MEDS: ASPIRIN 325 MG TAB PO SCH (10:07)
[2023-10-19] MEDS: BISOPROLOL-HCTZ 10-6.25 MG 1 EACH TAB PO SCH (10:07)
[2023-10-19] MEDS: CLOPIDOGREL 75 MG TAB PO SCH (10:07)
[2023-10-19] MEDS: ATORVASTATIN 80 MG TAB PO SCH (10:07)
[2023-10-19 10:43] LABS: Basophils % (A) 1.5 %; Eosinophils # (A) 0.21 X 10*3/uL (0.04-0.35); Eosinophils % (A) 3.1 %; HCT 37.6 % (39.6-50.0); HGB 12.3 g/dL (13.0-17.0); Lymphocytes # (A) 1.79 X 10*3/uL (0.90-5.00); Lymphocytes % (A) 26.4 %; MCH 29.6 pg (27.0-32.0); MCHC 32.7 g/dL (32.0-37.0); MCV 90.4 FL (80.0-97.0); Mean Platelet Volume 9.9 FL (9.5-12.2); Monocytes # (A) 0.68 X 10*3/uL (0.20-1.00); NRBC Per 100 WBC 0 X 10*3/uL (0.00-0.01); Neutrophils # (A) 3.99 X 10*3/uL (1.80-7.70); Neutrophils % (A) 58.7 %; Platelet Count 260 X 10*3/uL (140-440); RBC 4.16 X 10*6/uL (4.40-5.60); WBC 6.79 X 10*3/uL (4.50-10.00)
--- NOTE | 2023-10-19 10:46 | P.CRDCN ---
History of Present Illness Consult date: 10/19/23 Reason for Consult (text): MIKE? Per neuro, multifocal stroke History of present illness: History of present illness: This is a 73-year-old male patient of Dr. Boni Isabel with past medical history of coronary artery disease, hypertension, dyslipidemia. Patient had recent hospitalization in September at which time he presented with symptoms of blurred vision, unsteady gait. MRI revealed acute ischemia involving the left occipital lobe and right high frontal parasagittal region. Remote insult in the posterior right MCA territory. Patient was discharged home on Plavix. Patient now presents with difficulty moving his left arm. He states this lasted for about 15 to 20 minutes and went away without recurrence. He states he has been playing pickle ball 3 times per week. He has had no dizziness, lightheadedness or syncopal episodes. He has no lower extremity edema. No shortness of breath or chest pain or pressure. He denies having palpitations. He has never been told he had atrial fibrillation. He denies any blood in his stools. He did have a hernia bleed about 3 weeks ago which is resolved and was brief. He has no history of smoking. EKG sinus bradycardia at 59 bpm, incomplete right bundle branch block Chest x-ray: No acute process. CT of the brain revealed redemonstrated old infarct posterior right frontotemporal junction. No acute intracranial abnormality seen. Correlate for acute right maxillary sinusitis. CT angiogram of the head and neck revealed less than 25% ICA stenosis on either side. Some atherosclerotic calcifications involving the mild to moderate narrowing of the supraclinoid left ICA. No large vessel intracranial arterial occlusion, significant stenosis or aneurysmal change. WBC 5.8, hemoglobin 13.6. Sodium 137, potassium 4.1, BUN 21 creatinine 0.92. Troponin negative x 1. Urine drug screen negative. Urinalysis negative for infection. Home cardiac medications: Aspirin 81 mg daily, atorvastatin 80 mg daily, bisoprolol/hydrochlorothiazide 10-6.25 mg 1 daily, Plavix 75 mg daily, Imdur 30 mg daily. Lexiscan Cardiolite stress test performed in the office on 01/23/2023 was negative by EKG criteria and normal myocardial perfusion and function. Cardiac catheterization performed 03/02/2014 revealed mild to moderate disease involving the long segment of the proximal to mid LAD. Normal left ventricular systolic function. Normal left ventricular end-diastolic pressure. Medical management advised. Echocardiogram performed on 10/01/2023 revealed preserved systolic function. No right to left shunting on bubble study. Review Of Systems: At the time of my exam: CONSTITUTIONAL: Denies fever or chills. HEENT: Denies blurred vision, vision changes, or eye pain. Denies hemoptysis CARDIOVASCULAR: Denies chest pain. Denies orthopnea. Denies PND. Denies palpitations RESPIRATORY: Denies shortness of breath. GASTROINTESTINAL: Denies abdominal pain. Denies nausea or vomiting. HEMATOLOGIC: Denies bleeding disorders. GENITOURINARY: Denies any blood in urine. SKIN: Denies pruitis. Denies rash. Physical examination: Gen: This is a 73-year-old male in no acute distress VS: reviewed, blood pressure 130/79, heart rate 48-55, pulse ox 97% on room air. HEENT: Head is atraumatic, normocephalic. Pupils equal, round. Sclerae is anicteric. NECK: Supple. No JVD. LUNGS: Clear to auscultation. No wheezes or rhonchi. No intercostal retractions. HEART: Regular rate and rhythm. No murmur. ABDOMEN: Soft No tenderness. EXTREMITIES: No pedal edema. No calf tenderness. NEUROLOGICAL: Patient is awake, alert and oriented x3. Assessment: TIA Recent CVA History of coronary artery disease on medical management Hypertension Dyslipidemia Plan: Resume patient's home cardiac medications Patient will be scheduled for MIKE to rule out cardiac etiology for strokes with Dr. Boni Isabel. Further recommendations to follow based upon clinical course Thank you kindly for this consultation. Nurse practitioner note has been reviewed, I agree with documented findings and plan of care. Patient was seen and examined. Past Medical History Past Medical History: CVA/TIA, Hyperlipidemia, Hypertension Additional Past Medical History / Comment(s): FATIGUE, SOB History of Any Multi-Drug Resistant Organisms: None Reported Past Surgical History: No Surgical Hx Reported Past Anesthesia/Blood Transfusion Reactions: No Reported Reaction Past Psychological History: No Psychological Hx Reported Smoking Status: Never smoker Past Alcohol Use History: None Reported Past Drug Use History: None Reported Medications and Allergies Home Medications Medication Instructions Recorded Confirmed Type Aspirin 81 mg PO DAILY 02/28/14 10/18/23 History Atorvastatin [Lipitor] 80 mg PO DAILY 02/28/14 10/18/23 History Bisoprolol-Hctz 10-6.25 mg [Ziac 1 tab PO DAILY 02/28/14 10/18/23 History 10-6.25 MG] Ergocalciferol [Vitamin D2 1,250 mcg PO QMONTHLY 04/05/19 10/18/23 History (DRISDOL)] Isosorbide Mononitrate ER [Imdur] 30 mg PO DAILY 04/05/19 10/18/23 History Hydrocortisone Acetate [Anucort-Hc] 25 mg RECTAL QID PRN 09/30/23 10/18/23 History Hydrocortisone Cream 1 applic TOPICAL QID PRN 09/30/23 10/18/23 History [Hydrocortisone 2.5% Cream] Clopidogrel [Plavix] 75 mg PO DAILY #30 tab 10/02/23 10/18/23 Rx Allergies Allergy/AdvReac Type Severity Reaction Status Date / Time No Known Allergies Allergy Verified 10/18/23 11:43 Physical Exam Vitals: Vital Signs Temp Pulse Pulse Resp BP BP Pulse Ox 10/19/23 02:16 98.1 F 56 L 15 114/70 98 10/18/23 19:16 98.4 F 50 L 16 117/59 99 10/18/23 14:46 16 10/18/23 14:30 98.1 F 53 L 16 133/80 100 10/18/23 11:52 55 L 16 150/79 98 10/18/23 11:06 97.9 F 58 L 18 164/82 98 Intake and Output 10/18/23 10/19/23 10/19/23 22:59 06:59 14:59 Intake Total 118 Balance 118 Intake: Oral 118 Other: Voiding Method Toilet Toilet Urinal Urinal # Voids 2 1 Results 10/18/23 11:21 10/18/23 11:21 Cardiac Enzymes 10/18/23 10/18/23 Range/Units 11:21 11:21 AST 25 (17-59) U/L Troponin I <0.012 (0.000-0.034) ng/mL Coagulation 10/18/23 Range/Units 11:21 PT 11.0 (10.0-12.5) sec APTT 21.4 L (22.0-30.0) sec CBC 10/18/23 Range/Units 11:21 WBC 5.8 (3.8-10.6) k/uL RBC 4.51 (4.30-5.90) m/uL Hgb 13.6 (13.0-17.5) gm/dL Hct 40.4 (39.0-53.0) % Plt Count 254 (150-450) k/uL Comprehensive Metabolic Panel 10/18/23 Range/Units 11:21 Sodium 137 (137-145) mmol/L Potassium 4.1 (3.5-5.1) mmol/L Chloride 108 H (98-107) mmol/L Carbon Dioxide 20 L (22-30) mmol/L BUN 21 H (9-20) mg/dL Creatinine 0.92 (0.66-1.25) mg/dL Glucose 115 H (74-99) mg/dL Calcium 8.8 (8.4-10.2) mg/dL AST 25 (17-59) U/L ALT 24 (4-49) U/L Alkaline Phosphatase 58 (38-126) U/L Total Protein 6.5 (6.3-8.2) g/dL Albumin 3.6 (3.5-5.0) g/dL Current Medications Generic Name Dose Route Start Last Admin Trade Name Freq PRN Reason Stop Dose Admin Aspirin 325 mg 10/19/23 09:00 Aspirin 325 Mg Tab PO DAILY [facility] Atorvastatin Calcium 80 mg 10/19/23 09:00 Atorvastatin 80 Mg Tab PO DAILY [facility] Bisoprolol Fumarate 1 each 10/19/23 09:00 Bisoprolol-Hctz 10-6.25 Mg 1 Each Tab PO DAILY [facility] Clopidogrel Bisulfate 75 mg 10/19/23 09:00 Clopidogrel 75 Mg Tab PO DAILY [facility] Ergocalciferol 1,250 mcg 10/18/23 14:00 10/18/23 14:36 Ergocalciferol 1,250 Mcg (50,000 Iu) Capsule PO Not Given QMONTHLY [facility] Heparin Sodium (Porcine) 5,000 unit 10/18/23 14:00 10/18/23 20:31 Heparin Sodium,Porcine 5,000 Unit/Ml 1 Ml Vial SQ 5,000 unit Q12HR [facility] Administration Hydrocortisone 1 applic 10/18/23 13:49 Hydrocortisone 1% Cream 30 Gm Tube TOPICAL QID PRN Skin Irritation Hydrocortisone Acetate 25 mg 10/18/23 13:18 Hydrocortisone Suppository 25 Mg Supp RECTAL QID PRN irritation Isosorbide Mononitrate 30 mg 10/19/23 09:00 Isosorbide Mononitrate Er 30 Mg Tab.Er.24h PO DAILY [facility] Intake and Output 10/18/23 10/19/23 10/19/23 22:59 06:59 14:59 Intake Total 118 Balance 118 Intake: Oral 118 Other: Voiding Method Toilet Toilet Urinal Urinal # Voids 2 1 10/18/23 11:21 10/18/23 11:21
[2023-10-19 11:00] LABS: ALT 25 U/L (10-49); AST 23 U/L (14-35); Albumin 3.8 g/dL (3.8-4.9); Albumin/Globulin Ratio 1.73 Ratio (1.60-3.17); Alkaline Phosphatase 54 U/L (41-126); Blood Urea Nitrogen 18.4 mg/dL (9.0-27.0); Calcium 8.9 mg/dL (8.7-10.3); Carbon Dioxide 25.7 mmol/L (21.6-31.8); Chloride 106 mmol/L (96-109); Globulin 2.2 g/dL (1.6-3.3); Glucose 91 mg/dL (70-110); LDL Cholesterol,Calculated 39.9 mg/dL (0.0-131.0); Potassium 4.3 mmol/L (3.5-5.5); Sodium 141 mmol/L (135-145); Total Bilirubin 1.2 mg/dL (0.3-1.2)
--- NOTE | 2023-10-19 13:33 | P.CNNES ---
History of Present Illness Consult date: 10/19/23 Requesting physician: Ajay Flores Reason for Consult: TIA History of Present Illness: Patient is a 73-year-old right-handed male with history of hypertension, recent stroke, came to the hospital by ambulance yesterday at 11:01 AM for new onset transient left-sided weakness. Patient states that yesterday he woke up in the morning, and noticed has no control of the left arm or left leg. It was flopping around, not under his control. He could move it but could not handle sewer as it would not follow his direction. There was no slurred speech, problem with the vision, facial droop. His symptoms started improving and then resolved in about 15 minutes. He called the ambulance and was brought to the hospital. As per EMS flowsheet, when they arrived, patient was alert and oriented x 4. Patient mentioned that he was treated 3 weeks ago with tPA for a stroke at [facility]. He was on Plavix for 2 weeks and off for it last week per his primary physician's order. He woke up this morning at 9:30 AM and had complete paralysis of the left arm and leg. He was unable to stand or walk therefore he called 911. When EMS arrived, patient was asymptomatic. His paralysis resolved completely. Last known well was not clear, as patient was sleeping when symptoms started. [place] stroke scale was negative at that time. Patient's vitals at the scene was blood pressure 192/98 pulse rate 66, saturation 99% respiration 18, blood glucose 141. Blood test shows normal CBC, PT PTT, normal CMP, troponin. UA is negative, urine drug screen negative. EKG shows sinus bradycardia. Chest x-ray normal. CT head revealed redemonstrated old infarct posterior right frontotemporal junction. No acute intracranial abnormality seen. Correlate for acute right maxillary sinusitis. I personally reviewed CT head, agree with the findings. On my review, there is evidence of old lacunar in the right anterior limb of internal capsule, and some small vessel disease in bilateral basal ganglia. Patient was seen by Dr. Dunn on 10/01/2023 when he presented with blurred vision over the right lateral half with unsteady gait and legs giving out. Patient's MRI of the brain from 10/02/2023 revealed areas of acute ischemia involving the left occipital lobe and right high frontal parasagittal region. I personally reviewed that MRI, and agree with the findings. Patient was taking aspirin 81 mg daily at home. Plavix was added to the regimen. He was discharged home. Patient states that he took Plavix only for 10 days. He spoke to his primary physician, who told him to stay just on aspirin. He has been on aspirin only for last 5 days. CTA head and neck revealed mild, less than 25% proximal ICA stenosis on either side. No hemodynamically significant stenosis of the carotid or vertebral arteries of the neck. Some atherosclerotic calcification contributing to mild to moderate narrowing of the supraclinoid left ICA. No large vessel intracranial arterial occlusion. Patient's home medications list about Plavix 75 mg, aspirin 81 mg and Lipitor 80 mg. He only takes aspirin and Lipitor. No Plavix as mentioned above. Review of Systems Constitutional: Denies chills, Denies fever Eyes: denies blurred vision, denies diplopia, denies pain, denies loss of vision Ears: deny: decreased hearing, ear discharge Ears, nose, mouth and throat: Denies headache, Denies sore throat, Denies vertigo Cardiovascular: Denies chest pain, Denies lightheadedness, Denies shortness of breath, Denies syncope Respiratory: Denies cough, Denies excessive sputum Gastrointestinal: Denies abdominal pain, Denies diarrhea, Denies nausea, Denies vomiting Musculoskeletal: Denies myalgias, Denies neck pain Integumentary: Denies pruritus, Denies rash Neurological: Reports as per HPI Psychiatric: Denies anxiety, Denies depression Past Medical History Past Medical History: CVA/TIA, Hyperlipidemia, Hypertension Additional Past Medical History / Comment(s): FATIGUE, SOB History of Any Multi-Drug Resistant Organisms: None Reported Past Surgical History: No Surgical Hx Reported Past Anesthesia/Blood Transfusion Reactions: No Reported Reaction Past Psychological History: No Psychological Hx Reported Smoking Status: Never smoker Past Alcohol Use History: None Reported Past Drug Use History: None Reported Medications and Allergies Home Medications Medication Instructions Recorded Confirmed Type Aspirin 81 mg PO DAILY 02/28/14 10/18/23 History Atorvastatin [Lipitor] 80 mg PO DAILY 02/28/14 10/18/23 History Bisoprolol-Hctz 10-6.25 mg [Ziac 1 tab PO DAILY 02/28/14 10/18/23 History 10-6.25 MG] Ergocalciferol [Vitamin D2 1,250 mcg PO QMONTHLY 04/05/19 10/18/23 History (DRISDOL)] Isosorbide Mononitrate ER [Imdur] 30 mg PO DAILY 04/05/19 10/18/23 History Hydrocortisone Acetate [Anucort-Hc] 25 mg RECTAL QID PRN 09/30/23 10/18/23 History Hydrocortisone Cream 1 applic TOPICAL QID PRN 09/30/23 10/18/23 History [Hydrocortisone 2.5% Cream] Clopidogrel [Plavix] 75 mg PO DAILY #30 tab 10/02/23 10/18/23 Rx Allergies Allergy/AdvReac Type Severity Reaction Status Date / Time No Known Allergies Allergy Verified 10/18/23 11:43 Physical Examination - Vital Signs Vital Signs: Vital Signs Temp Pulse Resp BP Pulse Ox 10/19/23 10:00 48 L 130/79 97 10/19/23 09:00 97.8 F 51 L 16 144/87 95 10/19/23 08:34 55 L 16 166/78 99 10/19/23 07:00 98.1 F 73 16 155/81 97 10/19/23 02:16 98.1 F 56 L 15 114/70 98 10/18/23 19:16 98.4 F 50 L 16 117/59 99 10/18/23 14:46 16 10/18/23 14:30 98.1 F 53 L 16 133/80 100 Intake and Output 10/18/23 10/19/23 10/19/23 22:59 06:59 14:59 Intake Total 118 100 Balance 118 100 Intake: IV 100 Oral 118 Other: Voiding Method Toilet Toilet Toilet Urinal Urinal Urinal # Voids 2 1 Patient is an elderly male, very pleasant, in no acute distress. Patient is alert awake oriented to time place and person. Speech and language functions are normal. Patient can name and repeat very well. No aphasia or dysarthria. Attention, concentration and fund of knowledge is adequate. On cranial nerve examination, pupils are equal, round and reacting to light, visual bronson are full on confrontation, with no neglect on double simultaneous stimulation. Extraocular muscles are intact with no nystagmus. Face is symmetric, tongue protrudes to the midline. Palatal elevation and sensation normal, hearing and shoulder shrug normal, facial sensation normal. On muscle strength testing, there is no pronator drift and the strength is normal in arms and legs distally and proximally. Deep tendon reflexes are symmetric 1 in the upper limbs, trace in the lower limbs and plantars are withdrawal bilaterally. Sensory to touch is equal with no neglect on double simultaneous stimulation in the arms.. Sometimes he neglects the left leg, but other times not. Cerebellar function showed no ataxia for [id number] testing. No dysdiadochokinesia. No ataxia for [id number] testing on either side. Tone and bulk of muscles normal. Gait deferred.. On general examination, there is no carotid bruit or murmur, S1-S2 audible. Chest is clear on consultation. Abdomen is soft nontender. No organomegaly, bowel sounds present. Peripheral pulses are present. No peripheral edema. Results - Laboratory Findings CBC and BMP: 10/19/23 06:07 10/19/23 06:07 Abnormal Lab Findings: Abnormal Labs 10/18/23 10/18/23 10/18/23 11:21 11:21 15:52 RBC Hgb Hct APTT 21.4 L Chloride 108 H Carbon Dioxide 20 L BUN 21 H Glucose 115 H Total Protein HDL Cholesterol Ur Specific Rogers 1.049 H 10/19/23 10/19/23 06:07 06:07 RBC 4.16 L Hgb 12.3 L Hct 37.6 L APTT Chloride Carbon Dioxide BUN Glucose Total Protein 6.0 L HDL Cholesterol 35.30 L Ur Specific Rogers Assessment and Plan Assessment: * TIA, manifesting with transient left arm and leg incoordination, weakness, that resolved in 15 minutes. 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 * Hypertension * Hyperlipidemia Plan: * Patient underwent MIKE today to evaluate for any cardioembolic source of recu rrent stroke/TIA. It revealed no intracardiac thrombus. No evidence of shunting across interatrial septum. Normal left ventricular systolic function. * 30-day event monitoring, rule out paroxysmal atrial fibrillation * CTA head and neck revealed mild, less than 25% proximal ICA stenosis on either side. No hemodynamically significant stenosis of the carotid or vertebral arteries of the neck. Some atherosclerotic calcification contributing to mild to moderate narrowing of the supraclinoid left ICA. No large vessel intracranial arterial occlusion. * Hematology consultation to check for hypercoagulable state. * Patient stopped taking Plavix after 10 days from the previous CVA. Patient strongly recommended to continue aspirin 81 mg and Plavix 75 mg for 21 days. Then stop aspirin and continue Plavix indefinitely. * Lipid panel with cholesterol 99, LDL 39, HDL 35, triglycerides 119. Continue Lipitor 80 mg daily. * Check hemoglobin A1c * Check EEG rule out any epileptiform activity. * Neurology will follow. Thank you for the consult. Addendum: EEG was normal awake and drowsy. No focal, lateralized or epileptiform activity was seen.
--- NOTE | 2023-10-20 01:39 | EEG ---
ELECTROENCEPHALOGRAM REPORT PREAMBLE: This is a 73-year-old male who came with ataxia of the left upper and lower extremity. The patient has history of recent stroke. Also has history of an old stroke in the right parietal region. This study is performed to rule out any epileptiform activity. EEG FINDINGS: This is a 21-channel digital EEG recorded with video component, utilizing 10/20 international system with referential and bipolar montages. Background consists of well developed, well regulated moderate voltage activity in 9 to 10 hertz alpha. Background is posterior dominant and reactive to eye opening and closing. Photic driving response was not seen. Some drowsiness was seen with appearance of theta frequency rhythm. Deeper stages of sleep were not seen. No focal or generalized epileptiform activity was seen. IMPRESSION: This is a normal awake and drowsy EEG. No focal, lateralized, or epileptiform activity was seen. MMFARIHAL / DIAMOND: [id number] /
[2023-10-20 08:23] VITALS: BP 155/82; PULSE 50; RESP 18; TEMP 98.2
--- NOTE | 2023-10-20 10:30 | P.PN ---
Subjective Progress Note Date: 10/20/23 Reason for Consult (text): MIKE? Per neuro, multifocal stroke History of present illness: This is a 73-year-old male patient of Dr. Boni Isabel with past medical history of coronary artery disease, hypertension, dyslipidemia. Patient had recent hospitalization in September at which time he presented with symptoms of blurred vision, unsteady gait. MRI revealed acute ischemia involving the left occipital lobe and right high frontal parasagittal region. Remote insult in the posterior right MCA territory. Patient was discharged home on Plavix. Patient now presents with difficulty moving his left arm. He states this lasted for about 15 to 20 minutes and went away without recurrence. He states he has been playing [employer] ball 3 times per week. He has had no dizziness, lightheadedness or syncopal episodes. He has no lower extremity edema. No shortness of breath or chest pain or pressure. He denies having palpitations. He has never been told he had atrial fibrillation. He denies any blood in his stools. He did have a hernia bleed about 3 weeks ago which is resolved and was brief. He has no history of smoking. EKG sinus bradycardia at 59 bpm, incomplete right bundle branch block Chest x-ray: No acute process. CT of the brain revealed redemonstrated old infarct posterior right frontotemporal junction. No acute intracranial abnormality seen. Correlate for acute right maxillary sinusitis. CT angiogram of the head and neck revealed less than 25% ICA stenosis on either side. Some atherosclerotic calcifications involving the mild to moderate narrowing of the supraclinoid left ICA. No large vessel intracranial arterial occlusion, significant stenosis or aneurysmal change. WBC 5.8, hemoglobin 13.6. Sodium 137, potassium 4.1, BUN 21 creatinine 0.92. Troponin negative x 1. Urine drug screen negative. Urinalysis negative for in fection. Home cardiac medications: Aspirin 81 mg daily, atorvastatin 80 mg daily, bisoprolol/hydrochlorothiazide 10-6.25 mg 1 daily, Plavix 75 mg daily, Imdur 30 mg daily. Lexiscan Cardiolite stress test performed in the office on 01/23/2023 was negative by EKG criteria and normal myocardial perfusion and function. Cardiac catheterization performed 03/02/2014 revealed mild to moderate disease involving the long segment of the proximal to mid LAD. Normal left ventricular systolic function. Normal left ventricular end-diastolic pressure. Medical management advised. Echocardiogram performed on 10/01/2023 revealed preserved systolic function. No right to left shunting on bubble study. 10/19 Patient is seen today in follow up. He denies any new symptoms and no weakness of the left arm. Yesterday, he underwent a MIKE with Dr. Isabel which revealed no intracardiac thrombus, no evidence of shunting across the interatrial septum, Normal LVF. Physical examination: Gen: This is a 73-year-old male in no acute distress VS: reviewed HEENT: Head is atraumatic, normocephalic. Pupils equal, round. Sclerae is anicteric. NECK: Supple. No JVD. LUNGS: Clear to auscultation. No wheezes or rhonchi. No intercostal retractions. HEART: Regular rate and rhythm. No murmur. ABDOMEN: Soft No tenderness. EXTREMITIES: No pedal edema. No calf tenderness. NEUROLOGICAL: Patient is awake, alert and oriented x3. Assessment: TIA Recent CVA History of coronary artery disease on medical management Hypertension Dyslipidemia Plan: Continue patient's home cardiac medications No further cardiac work up is planned Patient is cleared for discharge and may follow up with Dr. Isabel in one week. Nurse practitioner note has been reviewed, I agree with documented findings and plan of care. Patient was seen and examined. Objective - Vital Signs Vital signs: Vital Signs Temp 98.2 F 10/20/23 07:11 Pulse 50 L 10/20/23 07:11 Resp 18 10/20/23 07:11 BP 155/82 10/20/23 07:11 Pulse Ox 98 10/20/23 07:11 FiO2 Intake & Output 10/19/23 10/20/23 10/20/23 18:59 06:59 18:59 Intake Total 100 Output Total 200 Balance -100 Intake: IV 100 Output: Urine 200 Other: Voiding Method Toilet Toilet Urinal Urinal # Voids 2 2 - Labs CBC & Chem 7: 10/19/23 06:07 10/19/23 06:07 Labs: Abnormal Lab Results - Last 24 Hours (Table) 10/19/23 10/19/23 Range/Units 06:07 06:07 RBC 4.16 L (4.40-5.60) X 10*6/uL Hgb 12.3 L (13.0-17.0) g/dL Hct 37.6 L (39.6-50.0) % Total Protein 6.0 L (6.2-8.2) g/dL HDL Cholesterol 35.30 L (40.00-60.00) mg/dL
--- NOTE | 2023-10-20 23:07 | P.CONS ---
History of Present Illness - Reason for Consult Consult date: 10/20/23 Recurrent stroke/TIA Requesting physician: Edouard Edmonds - Chief Complaint LUE weakness - History of Present Illness Mr. Yen is a 73-year-old male admitted with symptoms of TIA. He states that about 3 weeks ago he had an episode where he could not move his legs for few hours. This resolved spontaneously and he did not think much of it. Just prior to admit patient experienced inability to move his left arm for about 20 minutes. He contacted EMS. The symptoms have since resolved, no residual symptoms, denies numbness, tingling, unilateral weakness. He has no history of clotting or malignancy. He is a truck driver heavy, no smoking, EtOH use, he is very active. He has had a cardiac evaluation that was negative for any findings that would be concerning as an underlying cause for TIA. His mother had a stroke when she was 86. Patient reports he does have a sibling who is child miscarried, unknown reason why. Review of Systems 14 pioint ROS is neg except as stated in HPI Past Medical History Past Medical History: CVA/TIA, Hyperlipidemia, Hypertension Additional Past Medical History / Comment(s): FATIGUE, SOB History of Any Multi-Drug Resistant Organisms: None Reported Past Surgical History: No Surgical Hx Reported Past Anesthesia/Blood Transfusion Reactions: No Reported Reaction Past Psychological History: No Psychological Hx Reported Smoking Status: Never smoker Past Alcohol Use History: None Reported Past Drug Use History: None Reported - Past Family History Mother Family Medical History: CVA/TIA (at 86) Father Family Medical History: COPD Brother(s) Additional Family Medical History / Comment(s): Brother's daughter has had miscarriage Medications and Allergies Home Medications Medication Instructions Recorded Confirmed Type Aspirin 81 mg PO DAILY 02/28/14 10/18/23 History Atorvastatin [Lipitor] 80 mg PO DAILY 02/28/14 10/18/23 History Bisoprolol-Hctz 10-6.25 mg [Ziac 1 tab PO DAILY 02/28/14 10/18/23 History 10-6.25 MG] Ergocalciferol [Vitamin D2 1,250 mcg PO QMONTHLY 04/05/19 10/18/23 History (DRISDOL)] Isosorbide Mononitrate ER [Imdur] 30 mg PO DAILY 04/05/19 10/18/23 History Hydrocortisone Acetate [Anucort-Hc] 25 mg RECTAL QID PRN 09/30/23 10/18/23 History Hydrocortisone Cream 1 applic TOPICAL QID PRN 09/30/23 10/18/23 History [Hydrocortisone 2.5% Cream] Clopidogrel [Plavix] 75 mg PO DAILY #30 tab 10/02/23 10/18/23 Rx Allergies Allergy/AdvReac Type Severity Reaction Status Date / Time No Known Allergies Allergy Verified 10/18/23 11:43 Physical Exam Vitals: Vital Signs Temp Pulse Resp BP Pulse Ox 10/20/23 09:03 18 10/20/23 07:11 98.2 F 50 L 18 155/82 98 10/20/23 00:42 98.4 F 57 L 15 133/75 99 10/19/23 19:49 98.2 F 52 L 15 161/85 98 10/19/23 15:00 97.3 F L 50 L 16 142/85 98 Intake and Output 10/19/23 10/20/23 10/20/23 22:59 06:59 14:59 Other: Voiding Method Toilet Toilet Urinal Urinal # Voids 2 2 3 - Constitutional General appearance: average body habitus, cooperative, no acute distress - EENT Eyes: anicteric sclerae, EOMI ENT: hearing grossly normal, normal oropharynx - Respiratory Respiratory: bilateral: CTA - Cardiovascular Rhythm: regular Heart sounds: normal: S1, S2 Abnormal Heart Sounds: no systolic murmur, no diastolic murmur, no rub, no S3 Gallop, no S4 Gallop, no click, no other leg Peripheral Edema: bilateral: None - Gastrointestinal General gastrointestinal: normal bowel sounds, soft - Integumentary Integumentary: normal - Neurologic Neurologic: CNII-XII intact - Musculoskeletal Musculoskeletal: strength equal bilaterally - Psychiatric Psychiatric: A&O x's 3, appropriate affect, intact judgment & insight Results CBC & Chem 7: 10/19/23 06:07 10/19/23 06:07 Comments: MIKE report reviewed CTA neck report reviewed CT Scan - head: report reviewed Assessment and Plan (1) Transient cerebral ischemia Status: Acute Priority: High Code(s): G45.9 - TRANSIENT CEREBRAL ISCHEMIC ATTACK, UNSPECIFIED SNOMED Code(s): 184860791 Plan: TIA -2 episodes of inability to move extremities within the last 3 weeks. -Patient does not have any residual weakness or other neurological complaints -He has been evaluated by Cardiology as well as Neurology. Work up so far has not identified an underlying cause for pt symptoms -We were consulted for concerns of hypercoagulable condition. -Plan is for patient to be worked up in the outpatient setting for h ypercoagulable condition. We will schedule patient for lab draw with a follow- up with the Health/Safety [facility] 3 to 4 weeks later for results and recommendations. Patient verbalized understanding the plan and is in agreement with the same. Dr garciaests: I have seen and examined pt, performed H&P, developed impression and plan of care. Discussed with dictator. Agree with documentation, dictated as a scribe.
== END 2023-10-20 14:19 | disposition home or self-care (01) ==
LOC: EC 11:01 → 6NMEDSUR 13:18
PROVIDERS: ADMIT Family Medicine; ATTEND Family Medicine
DX: I65.21 Occlusion and stenosis of right carotid artery (principal); I10 Essential (primary) hypertension; E78.5 Hyperlipidemia, unspecified; I25.10 Atherosclerotic heart disease of native coronary artery without angina pectoris; Z82.5 Family history of asthma and other chronic lower respiratory diseases; Z82.3 Family history of stroke; Z79.899 Other long term (current) drug therapy; Z79.82 Long term (current) use of aspirin; Z79.02 Long term (current) use of antithrombotics/antiplatelets
CPT/HCPCS: 96372 ×4; 99285; 36415; 95816; 93005; 93312; 93320; 93325; 93270; 97161; 80061; 80053 ×2; 85652; 82550; 84484; 85025 ×2; 85610; 85730; 81003; 80306; 83036; 71046; 70496; 70450; 70498; G0378 ×3; J2250; J1644 ×3; J3010; Q9967

== ENCOUNTER → 2024-08-04 | Outpatient (CLI) | payer MEDICARE ==
[2024-08-05 03:15] LABS: BUN/Creat Ratio 10.54 Ratio (12.00-20.00); Blood Urea Nitrogen 13.7 mg/dL (9.0-27.0); Carbon Dioxide 28.1 mmol/L (21.6-31.8); Chloride 103 mmol/L (96-109); Glucose 130 mg/dL (70-110); Potassium 4.8 mmol/L (3.5-5.5); Sodium 140 mmol/L (135-145)
== END | disposition home or self-care (01) ==
LOC: LABWHC1 15:10
PROVIDERS: ATTEND Internal Medicine Cardiovascular Disease
DX: R06.02 Shortness of breath (principal)
CPT/HCPCS: 36415; 80048; 84443

== ENCOUNTER → 2024-08-09 | Outpatient (CLI) | payer MEDICARE ==
[2024-08-09 18:15] LABS: HCT 38.5 % (39.6-50.0); HGB 12.4 g/dL (13.0-17.0); MCHC 32.2 g/dL (32.0-37.0); MCV 93.2 FL (80.0-97.0); Mean Platelet Volume 9.7 FL (9.5-12.2); NRBC Per 100 WBC 0 X 10*3/uL (0.00-0.01); Platelet Count 285 X 10*3/uL (140-440); RBC 4.13 X 10*6/uL (4.40-5.60); RDW 13.3 % (11.5-14.5); WBC 6.19 X 10*3/uL (4.50-10.00)
== END | disposition home or self-care (01) ==
LOC: LABWHC1 14:55
PROVIDERS: ATTEND Internal Medicine Cardiovascular Disease
DX: I48.11 Longstanding persistent atrial fibrillation (principal)
CPT/HCPCS: 36415; 85027